=== PATIENT | female | born 1940 | race African-American/Black ===

== ENCOUNTER 2018-02-03 14:49 | Emergency (ER) | payer MEDICARE ==
[~2018-02-03] VITALS: Ht 167.6 cm; Wt 80.0 kg
[2018-02-03] MEDS ORDERED: SODIUM CHLORIDE 0.9% 500 ML IV ONE (15:21)
[2018-02-03 15:47] LABS: CLARITY URINE CLOUDY (CLEAR); COLOR URINE YELLOW (YELLOW); KETONES URINE NEGATIVE (NEGATIVE); LEUKOCYTE ESTERASE URINE 1+ (NEGATIVE); NITRITE URINE NEGATIVE (NEGATIVE); OCCULT BLOOD URINE TRACE (NEGATIVE); PROTEIN URINE TRACE (NEGATIVE); SPECIFIC GRAVITY URINE 1.019 (1.005-1.030)
[2018-02-03] MEDS ORDERED: LEVOFLOXACIN 750MG PREMIX 150 ML IV ONE (16:30)
[2018-02-03 16:46] LABS: HEMATOCRIT. 35.6 % (36.0-48.0); HEMOGLOBIN. 11.7 g/dL (12.0-16.0); MEAN CORPUSCULAR VOLUME 85.5 fL (81.0-99.0); MEAN PLATELET VOLUME 9.3 fl (7.4-10.4); PLATELET 257 x1000/uL (130-400); RED BLOOD CELL COUNT 4.16 mill/uL (4.2-5.4)
[2018-02-03 16:53] LABS: CHLORIDE 106 mEq/L (98-107)
[2018-02-03 17:09] LABS: PLATELET ESTIMATE NORMAL
[2018-02-03 19:06] VITALS: BP 141/75
== END 2018-02-03 19:21 | disposition home or self-care (01) ==
LOC: ER 16:16
DX: N39.0 Urinary tract infection, site not specified (principal); E11.65 Type 2 diabetes mellitus with hyperglycemia; I48.91 Unspecified atrial fibrillation; E87.6 Hypokalemia; R00.0 Tachycardia, unspecified; I10 Essential (primary) hypertension; Z88.0 Allergy status to penicillin; Z79.01 Long term (current) use of anticoagulants
CPT/HCPCS: 36415; 71045; 80053; 81003; 85025; 93005; 96365; 96366; 99284; J1956; J7030

== ENCOUNTER 2018-02-12 09:50 | Inpatient (IN) | payer MEDICARE ==
[~2018-02-12] VITALS: Ht 162.6 cm; Wt 76.2 kg
[2018-02-12] VITALS (7 sets, daily range): BP systolic 97–139; BP diastolic 65–132
[2018-02-12] MEDS ORDERED: SODIUM CHLORIDE 0.9% 1,000 ML IV ONE (10:28)
[2018-02-12 11:29] LABS: CHLORIDE 102 mEq/L (98-107)
[2018-02-12 11:30] LABS: BASOPHILS % 0.3 % (0.0-2.0); EOSINOPHILS % 0.2 % (0.0-5.0); HEMATOCRIT. 36.8 % (36.0-48.0); HEMOGLOBIN. 11.9 g/dL (12.0-16.0); LYMPHOCYTES % 12.4 % (20.0-50.0); MEAN CORPUSCULAR HEMOGLOBIN 27.3 pg (28.0-32.0); MEAN CORPUSCULAR VOLUME 84.4 fL (81.0-99.0); MEAN PLATELET VOLUME 10.2 fl (7.4-10.4); NEUTROPHILS % 78.1 % (40.0-76.0); PLATELET 207 x1000/uL (130-400); RED BLOOD CELL COUNT 4.36 mill/uL (4.2-5.4); RED CELL DISTRIBUTION WIDTH 15.2 % (11.6-14.6)
[2018-02-12 11:32] LABS: INR 1.5; PROTHROMBIN TIME 15.4 sec (9.1-11.1)
[2018-02-12] MEDS ORDERED: SODIUM CHLORIDE 0.9% 1000ML BAG (SEPSIS BOLUS) IV ONE (12:00)
[2018-02-12] MEDS ORDERED: LEVOFLOXACIN 750MG PREMIX 150 ML IV ONE (12:45)
[2018-02-12] MEDS ORDERED: DILTIAZEM HCL 60MG TABLET PO ONE (13:00)
[2018-02-12] MEDS ORDERED: DILTIAZEM HCL 5MG/ML 5ML VIAL IV ONE (13:00)
[2018-02-12 13:15] LABS: CLARITY URINE TURBID (CLEAR); COLOR URINE DARK YELLOW (YELLOW); KETONES URINE 1+ (NEGATIVE); LEUKOCYTE ESTERASE URINE TRACE (NEGATIVE); NITRITE URINE NEGATIVE (NEGATIVE); OCCULT BLOOD URINE 1+ (NEGATIVE); PH URINE 5.5 (4.5-8.0); PROTEIN URINE 2+ (NEGATIVE); SPECIFIC GRAVITY URINE 1.029 (1.005-1.030)
[2018-02-12] MEDS ORDERED: DILTIAZEM HCL 60MG TABLET PO NR (14:23)
[2018-02-12] MEDS: DILTIAZEM HCL 60MG TABLET PO SCH (17:04)
[2018-02-12] MEDS ORDERED: GUAIFENESIN 200MG/10ML SUGAR FREE UDC PO PRN (17:15)
[2018-02-12] MEDS ORDERED: DIPHENHYDRAMINE 50MG/ML VIAL IV PRN (17:15)
[2018-02-12] MEDS ORDERED: ONDANSETRON HCL 4MG/2ML INJ IV PRN (17:15)
[2018-02-12] MEDS ORDERED: ACETAMINOPHEN 650MG/20.3ML UDC GT PRN (17:15)
[2018-02-12] MEDS ORDERED: ACETAMINOPHEN 650MG SUPP PR PRN (17:15)
[2018-02-12] MEDS ORDERED: CLONIDINE 0.1MG TABLET PO PRN (17:15)
[2018-02-12] MEDS ORDERED: ACETAMINOPHEN 325MG TABLET PO PRN (17:15)
[2018-02-12] MEDS ORDERED: HYDROCODONE/ACETAMINOPHEN 5/325MG TABLET PO PRN (17:15)
[2018-02-12] MEDS ORDERED: MAGNESIUM/ALUMINUM HYDROXIDE/SIMETHICONE 30ML UDC PO PRN (17:15)
[2018-02-12] MEDS ORDERED: DEXTROSE 50% WATER 50ML SYRINGE IV PRN (17:30)
[2018-02-12] MEDS ORDERED: FUROSEMIDE 40MG/4ML VIAL IVP NR (17:58)
[2018-02-12] MEDS ORDERED: IBUP-2030 PO (19:20)
[2018-02-12] MEDS ORDERED: CLOP75TA33 PO (19:21)
[2018-02-12] MEDS ORDERED: METF-415 PO (19:23)
[2018-02-12] MEDS ORDERED: PRAV40TA58 PO (19:23)
[2018-02-12] MEDS ORDERED: DILT180T11 PO (19:23)
[2018-02-12] MEDS ORDERED: METO25TA6 PO (19:23)
[2018-02-12] MEDS ORDERED: LOSA25TA12 PO (19:27)
[2018-02-12] MEDS ORDERED: NITR-87 PO (19:27)
[2018-02-12] MEDS ORDERED: ENOXAPARIN 40MG/0.4ML SYR SUBCUT SCH (20:00)
[2018-02-12] MEDS: AZITHROMYCIN 500 MG in DEXT 5% WATER 250 ML IV SCH (20:38)
[2018-02-12] MEDS: IPRATROPIUM/ALBUTEROL 0.5-3(2.5)MG/3ML NEB INH SCH (20:49)
[2018-02-12] MEDS: BLOOD SUGAR DIAGNOSTIC STRIP TEST SCH (20:54)
[2018-02-12] MEDS ORDERED: NA PHOS,M-B/NA PHOS,DI-BA ENEMA 118ML PR PRN (21:00)
[2018-02-12] MEDS: INSULIN LISPRO 100 UNITS/ML SUBCUT SCH (21:07)
[2018-02-12] MEDS: SODIUM CHLORIDE 0.9% INJ 3ML FLUSH IVF SCH (21:08)
[2018-02-12 21:33] LABS: CLARITY URINE CLOUDY (CLEAR); COLOR URINE DARK YELLOW (YELLOW); KETONES URINE 1+ (NEGATIVE); LEUKOCYTE ESTERASE URINE 2+ (NEGATIVE); NITRITE URINE POSITIVE (NEGATIVE); OCCULT BLOOD URINE 2+ (NEGATIVE); PROTEIN URINE 2+ (NEGATIVE); SPECIFIC GRAVITY URINE 1.021 (1.005-1.030)
[2018-02-12 21:48] LABS: *AMPHETAMINES SCREEN URINE NEGATIVE (NEGATIVE); *BARBITURATES SCREEN URINE NEGATIVE (NEGATIVE); *BENZODIAZEPINES SCREEN URINE NEGATIVE (NEGATIVE); *COCAINE SCREEN URINE NEGATIVE (NEGATIVE); METHADONE URINE SCREEN NEGATIVE (NEGATIVE); OPIATES URINE SCREEN PRESUMTIVE POSITIVE (NEGATIVE)
[2018-02-12 21:49] LABS: CANNABINOID URINE SCREEN NEGATIVE (NEGATIVE); PHENCYCLIDINE URINE SCREEN NEGATIVE (NEGATIVE)
[2018-02-12 22:03] LABS: CREATINE KINASE MB FRACTION 4.2 ng/mL (0.5-3.6)
[2018-02-13] VITALS (46 sets, daily range): BP systolic 42–149; BP diastolic 17–107
[2018-02-13] MEDS: IPRATROPIUM/ALBUTEROL 0.5-3(2.5)MG/3ML NEB INH SCH ×2 (01:26→08:20)
[2018-02-13] MEDS ORDERED: HEPARIN BOLUS PRN aPTT 37-44 IV ×2 (03:30)
[2018-02-13] MEDS ORDERED: HEPARIN BOLUS PRN aPTT <36 IV ×2 (03:30)
[2018-02-13] MEDS ORDERED: IOHEXOL-350 100 ML BOTTLE ONE (03:33)
[2018-02-13] MEDS: HEPARIN 25,000 UNITS PREMIX 500 ML IV SCH (04:46)
[2018-02-13] MEDS: BLOOD SUGAR DIAGNOSTIC STRIP TEST SCH ×4 (05:54→21:18)
[2018-02-13] MEDS: DILTIAZEM HCL 60MG TABLET PO SCH ×5 (06:00→23:57)
[2018-02-13] MEDS: SODIUM CHLORIDE 0.9% INJ 3ML FLUSH IVF SCH ×3 (06:00→21:18)
[2018-02-13 07:32] LABS: HEMATOCRIT. 35.1 % (36.0-48.0); HEMOGLOBIN. 11.1 g/dL (12.0-16.0); MEAN CORPUSCULAR HEMOGLOBIN 26.9 pg (28.0-32.0); MEAN CORPUSCULAR VOLUME 85.2 fL (81.0-99.0); MEAN PLATELET VOLUME 10.3 fl (7.4-10.4); PLATELET 197 x1000/uL (130-400); RED BLOOD CELL COUNT 4.12 mill/uL (4.2-5.4); RED CELL DISTRIBUTION WIDTH 15.2 % (11.6-14.6)
[2018-02-13 07:33] LABS: CHLORIDE 100 mEq/L (98-107)
[2018-02-13 07:40] LABS: LDL CHOLESTEROL 74 mg/dL (5-100)
[2018-02-13 07:41] LABS: CREATINE KINASE 148 IU/L (26-192); CREATINE KINASE MB FRACTION 5.4 ng/mL (0.5-3.6); HDL CHOLESTEROL 22 mg/dL (40-59)
[2018-02-13] MEDS: ASPIRIN 81MG EC TABLET PO SCH (08:00)
[2018-02-13] MEDS: CLOPIDOGREL 75MG TABLET PO SCH (08:00)
[2018-02-13] MEDS: INSULIN LISPRO 100 UNITS/ML SUBCUT SCH ×4 (08:01→21:29)
[2018-02-13] MEDS ORDERED: ALPRAZOLAM 0.25 MG TABLET PO PRN (10:45)
[2018-02-13] MEDS ORDERED: IPRATROPIUM/ALBUTEROL 0.5-3(2.5)MG/3ML NEB HHN PRN (11:15)
[2018-02-13 12:04] LABS: PLATELET ESTIMATE NORMAL
[2018-02-13] MEDS: IPRATROPIUM BROMIDE (0.02%) 0.5MG/2.5ML NEB HHN SCH ×2 (13:00→20:24)
[2018-02-13] MEDS: LEVOFLOXACIN 500MG TABLET PO SCH (13:10)
[2018-02-13] MEDS: AZITHROMYCIN 500 MG in DEXT 5% WATER 250 ML IV SCH (18:22)
[2018-02-13 20:47] LABS: BG CARBOXYHEMOGLOBIN 0.6 % (0.5-1.5); BG DEOXYHEMOGLOBIN 0.8 % (0.0-5.0); BG FRACTION INSPIRED OXYGEN 60; BG METHEMOGLOBIN 0.3 % (0.0-1.5); BG OXYGEN SATURATION 99.2 % (92.0-98.5); BG OXYHEMOGLOBIN 98.3 % (94.0-97.0); BG PCO2 23.1 mmHg (35.0-45.0); BG SAMPLE SITE RIGHT RADIAL; BG TOTAL HEMOGLOBIN 11.8 g/dL (12.0-18.0)
[2018-02-13] MEDS ORDERED: LORAZEPAM 2MG/ML CPJ IV PRN (21:15)
[2018-02-14] VITALS (49 sets, daily range): BP systolic 92–140; BP diastolic 52–99
[2018-02-14] MEDS: ZOLPIDEM TARTRATE 5MG TABLET PO PRN ×2 (00:33→23:48)
[2018-02-14] MEDS: IPRATROPIUM BROMIDE (0.02%) 0.5MG/2.5ML NEB HHN SCH ×4 (02:04→20:34)
[2018-02-14] MEDS: HEPARIN 25,000 UNITS PREMIX 500 ML IV SCH (05:09)
[2018-02-14] MEDS: SODIUM CHLORIDE 0.9% INJ 3ML FLUSH IVF SCH ×3 (05:10→21:37)
[2018-02-14] MEDS: DILTIAZEM HCL 60MG TABLET PO SCH (05:33)
[2018-02-14 06:49] LABS: HEMATOCRIT. 34.1 % (36.0-48.0); HEMOGLOBIN. 11.2 g/dL (12.0-16.0); MEAN CORPUSCULAR HEMOGLOBIN 27.5 pg (28.0-32.0); MEAN CORPUSCULAR VOLUME 83.8 fL (81.0-99.0); MEAN PLATELET VOLUME 10.3 fl (7.4-10.4); PLATELET 197 x1000/uL (130-400); RED BLOOD CELL COUNT 4.07 mill/uL (4.2-5.4)
[2018-02-14 07:05] LABS: CHLORIDE 100 mEq/L (98-107)
[2018-02-14] MEDS: BLOOD SUGAR DIAGNOSTIC STRIP TEST SCH ×4 (08:06→21:37)
[2018-02-14] MEDS: CLOPIDOGREL 75MG TABLET PO SCH (08:23)
[2018-02-14] MEDS: ASPIRIN 81MG EC TABLET PO SCH (08:23)
[2018-02-14] MEDS: INSULIN LISPRO 100 UNITS/ML SUBCUT SCH ×4 (08:24→22:16)
[2018-02-14 08:53] LABS: BG BASE EXCESS -4.2 mmol/L (-2.0-2.0); BG CARBOXYHEMOGLOBIN 0.3 % (0.5-1.5); BG DEOXYHEMOGLOBIN 2.5 % (0.0-5.0); BG FRACTION INSPIRED OXYGEN 36; BG HCO3 ACT 17.9 mmol/L (22.0-26.0); BG METHEMOGLOBIN 0.3 % (0.0-1.5); BG OXYGEN SATURATION 97.5 % (92.0-98.5); BG OXYHEMOGLOBIN 96.9 % (94.0-97.0); BG PCO2 24.9 mmHg (35.0-45.0); BG PH 7.475 (7.350-7.450); BG PO2 97.1 mmHg (75.0-100.0); BG SAMPLE SITE RIGHT RADIAL; BG TOTAL HEMOGLOBIN 11.8 g/dL (12.0-18.0); BG VENT MODE NASAL CANNULA
[2018-02-14 08:54] LABS: NUCLEATED RED BLOOD CELLS 3 /100 WBC
[2018-02-14 08:55] LABS: PLATELET ESTIMATE NORMAL
[2018-02-14] MEDS ORDERED: DILTIAZEM HCL 5MG/ML 5ML VIAL IV PRN (11:00)
[2018-02-14] MEDS ORDERED: POTASSIUM CHLORIDE 20MEQ/PACKET PO NR (11:00)
[2018-02-14] MEDS: FUROSEMIDE 40MG/4ML VIAL IVP SCH (12:48)
[2018-02-14] MEDS: DILTIAZEM HCL 90MG TABLET PO SCH ×3 (12:48→23:45)
[2018-02-14] MEDS: LEVOFLOXACIN 500MG TABLET PO SCH (12:49)
[2018-02-14] MEDS: AZITHROMYCIN 500 MG in DEXT 5% WATER 250 ML IV SCH (17:57)
[2018-02-15] VITALS (43 sets, daily range): BP systolic 93–144; BP diastolic 16–101
[2018-02-15] MEDS: IPRATROPIUM BROMIDE (0.02%) 0.5MG/2.5ML NEB HHN SCH ×4 (02:22→20:58)
[2018-02-15] MEDS: SODIUM CHLORIDE 0.9% INJ 3ML FLUSH IVF SCH ×3 (06:07→20:55)
[2018-02-15] MEDS: DILTIAZEM HCL 90MG TABLET PO SCH ×4 (06:08→23:24)
[2018-02-15 07:03] LABS: HEMATOCRIT. 34.5 % (36.0-48.0); HEMOGLOBIN. 11.1 g/dL (12.0-16.0); LYMPHOCYTES % 7.6 % (20.0-50.0); MEAN CORPUSCULAR HEMOGLOBIN 27.2 pg (28.0-32.0); MEAN CORPUSCULAR VOLUME 84.2 fL (81.0-99.0); MEAN PLATELET VOLUME 10.1 fl (7.4-10.4); MONOCYTES % 10.2 % (2.0-8.0); NEUTROPHILS % 82.2 % (40.0-76.0); PLATELET 222 x1000/uL (130-400); RED CELL DISTRIBUTION WIDTH 14.8 % (11.6-14.6)
[2018-02-15 07:26] LABS: CHLORIDE 98 mEq/L (98-107)
[2018-02-15] MEDS: BLOOD SUGAR DIAGNOSTIC STRIP TEST SCH ×4 (07:41→20:55)
[2018-02-15] MEDS: POTASSIUM CHLORIDE 20MEQ TABLET SR PO SCH (08:31)
[2018-02-15] MEDS: ASPIRIN 81MG EC TABLET PO SCH (08:31)
[2018-02-15] MEDS: CLOPIDOGREL 75MG TABLET PO SCH (08:31)
[2018-02-15] MEDS: FUROSEMIDE 40MG/4ML VIAL IVP SCH (08:32)
[2018-02-15] MEDS: DOCUSATE SODIUM 100MG CAPSULE PO PRN (08:32)
[2018-02-15] MEDS: INSULIN LISPRO 100 UNITS/ML SUBCUT SCH ×4 (08:34→21:10)
[2018-02-15] MEDS: ENOXAPARIN 80MG/0.8ML SYR SUBCUT SCH ×2 (11:54→23:24)
[2018-02-15] MEDS: NITROFURANTOIN 100MG M/M CAPSULE PO SCH ×2 (11:55→21:06)
[2018-02-16] VITALS (36 sets, daily range): BP systolic 113–144; BP diastolic 16–99
[2018-02-16] MEDS: ZOLPIDEM TARTRATE 5MG TABLET PO PRN ×2 (01:07→23:53)
[2018-02-16] MEDS: IPRATROPIUM BROMIDE (0.02%) 0.5MG/2.5ML NEB HHN SCH ×5 (01:27→20:13)
[2018-02-16] MEDS: SODIUM CHLORIDE 0.9% INJ 3ML FLUSH IVF SCH ×3 (05:33→22:36)
[2018-02-16] MEDS: DILTIAZEM HCL 90MG TABLET PO SCH ×4 (05:33→23:53)
[2018-02-16 06:05] LABS: BASOPHILS % 0.2 % (0.0-2.0); EOSINOPHILS % 0.2 % (0.0-5.0); HEMATOCRIT. 34.1 % (36.0-48.0); HEMOGLOBIN. 11.2 g/dL (12.0-16.0); LYMPHOCYTES % 13.3 % (20.0-50.0); MEAN CORPUSCULAR HEMOGLOBIN 27.2 pg (28.0-32.0); MEAN CORPUSCULAR VOLUME 83.2 fL (81.0-99.0); MEAN PLATELET VOLUME 10.1 fl (7.4-10.4); MONOCYTES % 11.6 % (2.0-8.0); NEUTROPHILS % 74.7 % (40.0-76.0); PLATELET 224 x1000/uL (130-400); RED CELL DISTRIBUTION WIDTH 15.2 % (11.6-14.6)
[2018-02-16 06:26] LABS: CHLORIDE 100 mEq/L (98-107)
[2018-02-16] MEDS: BLOOD SUGAR DIAGNOSTIC STRIP TEST SCH ×4 (07:50→20:58)
[2018-02-16] MEDS: FUROSEMIDE 40MG/4ML VIAL IVP SCH (10:29)
[2018-02-16] MEDS: DOCUSATE SODIUM 100MG CAPSULE PO PRN (10:29)
[2018-02-16] MEDS: ASPIRIN 81MG EC TABLET PO SCH (10:29)
[2018-02-16] MEDS: NITROFURANTOIN 100MG M/M CAPSULE PO SCH ×2 (10:29→20:57)
[2018-02-16] MEDS: CLOPIDOGREL 75MG TABLET PO SCH (10:29)
[2018-02-16] MEDS: POTASSIUM CHLORIDE 20MEQ TABLET SR PO SCH (10:29)
[2018-02-16] MEDS: INSULIN LISPRO 100 UNITS/ML SUBCUT SCH ×4 (10:42→20:58)
[2018-02-16] MEDS: ENOXAPARIN 80MG/0.8ML SYR SUBCUT SCH (13:06)
[2018-02-17] VITALS: BP 124/76
[2018-02-17] MEDS: IPRATROPIUM BROMIDE (0.02%) 0.5MG/2.5ML NEB HHN SCH ×3 (02:10→13:44)
[2018-02-17 04:00] VITALS: BP 118/69
[2018-02-17] MEDS: INSULIN LISPRO 100 UNITS/ML SUBCUT SCH ×2 (06:27→13:11)
[2018-02-17] MEDS: BLOOD SUGAR DIAGNOSTIC STRIP TEST SCH (06:27)
[2018-02-17] MEDS: DILTIAZEM HCL 90MG TABLET PO SCH ×2 (06:43→12:25)
[2018-02-17] MEDS: SODIUM CHLORIDE 0.9% INJ 3ML FLUSH IVF SCH (06:44)
[2018-02-17 07:08] LABS: BASOPHILS % 0.1 % (0.0-2.0); EOSINOPHILS % 0.6 % (0.0-5.0); HEMATOCRIT. 36.2 % (36.0-48.0); HEMOGLOBIN. 11.8 g/dL (12.0-16.0); LYMPHOCYTES % 12.2 % (20.0-50.0); MEAN CORPUSCULAR HEMOGLOBIN 26.9 pg (28.0-32.0); MEAN CORPUSCULAR VOLUME 82.5 fL (81.0-99.0); MEAN PLATELET VOLUME 10.1 fl (7.4-10.4); MONOCYTES % 9.6 % (2.0-8.0); NEUTROPHILS % 77.5 % (40.0-76.0); PLATELET 263 x1000/uL (130-400); RED BLOOD CELL COUNT 4.39 mill/uL (4.2-5.4); RED CELL DISTRIBUTION WIDTH 15.1 % (11.6-14.6)
[2018-02-17 07:24] LABS: CHLORIDE 99 mEq/L (98-107)
[2018-02-17 08:00] VITALS: BP 117/69
[2018-02-17] MEDS ORDERED: RIVAROXABAN 15 MG TABLET PO SCH (09:00)
[2018-02-17] MEDS: CLOPIDOGREL 75MG TABLET PO SCH (09:57)
[2018-02-17] MEDS: POTASSIUM CHLORIDE 20MEQ TABLET SR PO SCH (09:57)
[2018-02-17] MEDS: NITROFURANTOIN 100MG M/M CAPSULE PO SCH (09:57)
[2018-02-17] MEDS: FUROSEMIDE 40MG/4ML VIAL IVP SCH (09:57)
[2018-02-17] MEDS: ASPIRIN 81MG EC TABLET PO SCH (09:58)
[2018-02-17] MEDS ORDERED: CARVEDILOL 3.125 MG TABLET PO SCH (11:45)
[2018-02-17 12:00] VITALS: BP 106/59
[2018-02-17 15:38] VITALS: BP 120/70
[2018-02-17 16:00] VITALS: BP 123/69
[2018-03-06] MEDS ORDERED: RIVAROXABAN 20 MG TABLET PO SCH (17:00)
== END 2018-02-17 16:33 | disposition home health service (06) | DRG 871 ==
LOC: ER 09:50 → 3WST 12:57 → EDBEDREQ 13:00 → EDBEDREQTM 13:00 → ENRESERV 13:17 → 3WST 17:06 → CVICU 02-13 08:49 → 8WST 02-16 23:43
PROVIDERS: ADMIT Family Medicine; ATTEND Family Medicine
PROC: 5A09357 Assistance with Respiratory Ventilation, Less than 24 Consecutive Hours, Continuous Positive Airway Pressure (ICD-10-PCS; 2018-02-14)
PROC: 5A09357 Assistance with Respiratory Ventilation, Less than 24 Consecutive Hours, Continuous Positive Airway Pressure (ICD-10-PCS; 2018-02-15)
PROC: 5A09357 Assistance with Respiratory Ventilation, Less than 24 Consecutive Hours, Continuous Positive Airway Pressure (ICD-10-PCS; principal; 2018-02-16)
DX: A41.9 Sepsis, unspecified organism (principal); J18.9 Pneumonia, unspecified organism; J96.00 Acute respiratory failure, unspecified whether with hypoxia or hypercapnia; I26.99 Other pulmonary embolism without acute cor pulmonale; I50.21 Acute systolic (congestive) heart failure; N39.0 Urinary tract infection, site not specified; I42.9 Cardiomyopathy, unspecified; I47.1 Supraventricular tachycardia; I48.1 Persistent atrial fibrillation; R74.0 Nonspecific elevation of levels of transaminase and lactic acid dehydrogenase [LDH]; E11.9 Type 2 diabetes mellitus without complications; E78.00 Pure hypercholesterolemia, unspecified; E78.5 Hyperlipidemia, unspecified; I08.1 Rheumatic disorders of both mitral and tricuspid valves; I11.0 Hypertensive heart disease with heart failure; I27.20 Pulmonary hypertension, unspecified; B96.20 Unspecified Escherichia coli [E. coli] as the cause of diseases classified elsewhere; B96.89 Other specified bacterial agents as the cause of diseases classified elsewhere; I48.2 Chronic atrial fibrillation; Z79.02 Long term (current) use of antithrombotics/antiplatelets; Z82.49 Family history of ischemic heart disease and other diseases of the circulatory system; Z85.41 Personal history of malignant neoplasm of cervix uteri; Z88.0 Allergy status to penicillin; Z90.710 Acquired absence of both cervix and uterus; Z79.899 Other long term (current) drug therapy
CPT/HCPCS: 36415; 36600; 71045; 71275; 80048; 80061; 80305; 82375; 82550; 82553; 82805; 82962; 83605; 83735; 83880; 84145; 84443; 84484; 85379; 87077; 87186; 93005; 93306; 93970; 94640; 94660; 96365; 96375; 97116; 97162; 97530; 99291; J0456; J1644; J1650; J1815; J1940; J1956; J3490; J7030; J7050; J7060; J7620; Q9967

== ENCOUNTER 2018-02-17 16:30 | Inpatient (IN) | payer MEDICARE, BC ==
[~2018-02-17] VITALS: Ht 162.6 cm; Wt 80.3 kg
[~2018-02-17 16:30] MED LIST: CLOP75TA33 PO; DILT180T11 PO; IBUP-2030 PO; LOSA25TA12 PO; METF-415 PO; METO25TA6 PO; NITR-87 PO; PRAV40TA58 PO
[2018-02-17 16:50] VITALS: BP 111/56
[2018-02-17] MEDS: IPRATROPIUM BROMIDE (0.02%) 0.5MG/2.5ML NEB HHN SCH (18:05)
[2018-02-17 18:10] VITALS: BP 111/56
[2018-02-17] MEDS ORDERED: METFORMIN HCL 850MG TABLET PO SCH (18:15)
[2018-02-17 20:00] VITALS: BP 105/71
[2018-02-17] MEDS ORDERED: BISACODYL 5MG TABLET PO PRN (20:00)
[2018-02-17] MEDS: CARVEDILOL 3.125 MG TABLET PO SCH (21:00)
[2018-02-17] MEDS ORDERED: METOPROLOL TARTRATE 25MG TABLET PO SCH (21:00)
[2018-02-17] MEDS: NITROFURANTOIN 100MG M/M CAPSULE PO SCH (21:03)
[2018-02-17] MEDS: RIVAROXABAN 15 MG TABLET PO SCH (21:03)
[2018-02-17] MEDS: ATORVASTATIN CALCIUM 40MG TABLET PO SCH (21:03)
[2018-02-17] MEDS: DOCUSATE SODIUM 100MG CAPSULE PO SCH (21:05)
[2018-02-17] MEDS ORDERED: DEXTROSE 50% WATER 50ML SYRINGE IV PRN (22:30)
[2018-02-17] MEDS: INSULIN LISPRO 100 UNITS/ML SUBCUT SCH (23:05)
[2018-02-18] MEDS: IPRATROPIUM BROMIDE (0.02%) 0.5MG/2.5ML NEB HHN SCH ×5 (01:06→21:21)
[2018-02-18] MEDS: BLOOD SUGAR DIAGNOSTIC STRIP TEST SCH ×4 (07:14→20:41)
[2018-02-18] MEDS: INSULIN LISPRO 100 UNITS/ML SUBCUT SCH ×4 (07:15→21:14)
[2018-02-18 07:32] LABS: HEMATOCRIT. 34.3 % (36.0-48.0); HEMOGLOBIN. 11.2 g/dL (12.0-16.0); MEAN CORPUSCULAR HEMOGLOBIN 26.8 pg (28.0-32.0); MEAN CORPUSCULAR VOLUME 82.5 fL (81.0-99.0); MEAN PLATELET VOLUME 10.5 fl (7.4-10.4); PLATELET 250 x1000/uL (130-400); RED BLOOD CELL COUNT 4.16 mill/uL (4.2-5.4); RED CELL DISTRIBUTION WIDTH 15.4 % (11.6-14.6)
[2018-02-18 07:40] LABS: CHLORIDE 98 mEq/L (98-107)
[2018-02-18 08:00] VITALS: BP 112/73
[2018-02-18] MEDS: CARVEDILOL 3.125 MG TABLET PO SCH ×2 (08:41→20:40)
[2018-02-18] MEDS: DOCUSATE SODIUM 100MG CAPSULE PO SCH ×2 (08:41→17:23)
[2018-02-18] MEDS: CLOPIDOGREL 75MG TABLET PO SCH (08:42)
[2018-02-18] MEDS: DILTIAZEM HCL 180MG CAPSULE CD 24HR PO SCH (08:42)
[2018-02-18] MEDS: RIVAROXABAN 15 MG TABLET PO SCH ×3 (08:42→20:40)
[2018-02-18] MEDS: FUROSEMIDE 40MG TABLET PO SCH (08:42)
[2018-02-18] MEDS: NITROFURANTOIN 100MG M/M CAPSULE PO SCH ×2 (08:42→20:41)
[2018-02-18] MEDS ORDERED: LOSARTAN POTASSIUM 25 MG TABLET PO SCH (09:00)
[2018-02-18] MEDS ORDERED: CLOPIDOGREL 75MG TABLET PO SCH (09:00)
[2018-02-18] MEDS ORDERED: INSULIN LISPRO 100 UNITS/ML SUBCUT SCH (09:00)
[2018-02-18] MEDS ORDERED: SODIUM POLYSTYRENE SULFONATE 15 G/60 ML BOT PO SCH (10:00)
[2018-02-18] MEDS: LEVOFLOXACIN 250MG TABLET PO SCH (10:09)
[2018-02-18] MEDS ORDERED: LEVOFLOXACIN 500MG TABLET PO SCH (11:00)
[2018-02-18 13:40] LABS: NUCLEATED RED BLOOD CELLS 3 /100 WBC; PLATELET ESTIMATE NORMAL
[2018-02-18 20:00] VITALS: BP 135/88
[2018-02-18 20:38] LABS: CLARITY URINE CLEAR (CLEAR); COLOR URINE DARK YELLOW (YELLOW); KETONES URINE NEGATIVE (NEGATIVE); LEUKOCYTE ESTERASE URINE NEGATIVE (NEGATIVE); NITRITE URINE NEGATIVE (NEGATIVE); OCCULT BLOOD URINE NEGATIVE (NEGATIVE); PH URINE 5.5 (4.5-8.0); PROTEIN URINE NEGATIVE (NEGATIVE); SPECIFIC GRAVITY URINE 1.022 (1.005-1.030)
[2018-02-18] MEDS: FAMOTIDINE 20MG TABLET PO SCH (20:41)
[2018-02-18] MEDS: ATORVASTATIN CALCIUM 40MG TABLET PO SCH (20:41)
[2018-02-18] MEDS: ALBUTEROL (0.083%) 2.5MG/3ML NEB HHN SCH (21:21)
[2018-02-18] MEDS ORDERED: METOCLOPRAMIDE HCL 5MG TABLET PO PRN (22:15)
[2018-02-18] MEDS ORDERED: BISACODYL 10MG SUPP PR PRN (22:15)
[2018-02-18] MEDS ORDERED: MAGNESIUM/ALUMINUM HYDROXIDE/SIMETHICONE 30ML UDC PO PRN (22:15)
[2018-02-18] MEDS ORDERED: DOCUSATE SODIUM 250MG CAPSULE PO PRN (22:15)
[2018-02-19] MEDS ORDERED: FUROSEMIDE 40MG/4ML VIAL IVP SCH (02:17)
[2018-02-19] MEDS: IPRATROPIUM BROMIDE (0.02%) 0.5MG/2.5ML NEB HHN SCH ×3 (02:20→20:59)
[2018-02-19] MEDS: ALBUTEROL (0.083%) 2.5MG/3ML NEB HHN SCH ×4 (02:20→20:59)
[2018-02-19] MEDS: BLOOD SUGAR DIAGNOSTIC STRIP TEST SCH ×4 (06:13→21:39)
[2018-02-19] MEDS: INSULIN LISPRO 100 UNITS/ML SUBCUT SCH ×4 (06:27→21:00)
[2018-02-19 08:00] VITALS: BP 120/70
[2018-02-19] MEDS: DOCUSATE SODIUM 100MG CAPSULE PO SCH ×2 (09:25→17:44)
[2018-02-19] MEDS: FUROSEMIDE 40MG TABLET PO SCH (09:25)
[2018-02-19] MEDS: FAMOTIDINE 20MG TABLET PO SCH ×2 (09:25→21:35)
[2018-02-19] MEDS: NITROFURANTOIN 100MG M/M CAPSULE PO SCH ×2 (09:25→21:35)
[2018-02-19] MEDS: CLOPIDOGREL 75MG TABLET PO SCH (09:25)
[2018-02-19] MEDS: CARVEDILOL 3.125 MG TABLET PO SCH ×2 (09:25→21:35)
[2018-02-19] MEDS: DILTIAZEM HCL 180MG CAPSULE CD 24HR PO SCH (09:25)
[2018-02-19] MEDS: RIVAROXABAN 15 MG TABLET PO SCH (17:44)
[2018-02-19 20:00] VITALS: BP 123/72
[2018-02-19] MEDS: ATORVASTATIN CALCIUM 40MG TABLET PO SCH (21:35)
[2018-02-20] MEDS: BLOOD SUGAR DIAGNOSTIC STRIP TEST SCH ×4 (06:26→21:00)
[2018-02-20] MEDS: INSULIN LISPRO 100 UNITS/ML SUBCUT SCH ×4 (07:02→22:30)
[2018-02-20] MEDS: ALBUTEROL (0.083%) 2.5MG/3ML NEB HHN SCH ×3 (07:19→20:37)
[2018-02-20] MEDS: IPRATROPIUM BROMIDE (0.02%) 0.5MG/2.5ML NEB HHN SCH ×3 (07:20→20:38)
[2018-02-20 08:00] VITALS: BP 118/72
[2018-02-20 08:04] LABS: BASOPHILS % 0.1 % (0.0-2.0); EOSINOPHILS % 1.3 % (0.0-5.0); HEMATOCRIT. 36.5 % (36.0-48.0); HEMOGLOBIN. 11.7 g/dL (12.0-16.0); LYMPHOCYTES % 8.2 % (20.0-50.0); MEAN CORPUSCULAR HEMOGLOBIN 26.4 pg (28.0-32.0); MEAN CORPUSCULAR VOLUME 82.7 fL (81.0-99.0); MEAN PLATELET VOLUME 9.9 fl (7.4-10.4); MONOCYTES % 8.6 % (2.0-8.0); NEUTROPHILS % 81.8 % (40.0-76.0); PLATELET 265 x1000/uL (130-400); RED BLOOD CELL COUNT 4.42 mill/uL (4.2-5.4); RED CELL DISTRIBUTION WIDTH 15.1 % (11.6-14.6)
[2018-02-20 08:05] LABS: CHLORIDE 95 mEq/L (98-107)
[2018-02-20] MEDS: DOCUSATE SODIUM 100MG CAPSULE PO SCH ×2 (09:17→17:05)
[2018-02-20] MEDS: RIVAROXABAN 15 MG TABLET PO SCH ×2 (09:17→17:05)
[2018-02-20] MEDS: FAMOTIDINE 20MG TABLET PO SCH (09:17)
[2018-02-20] MEDS: NITROFURANTOIN 100MG M/M CAPSULE PO SCH ×2 (09:17→22:29)
[2018-02-20] MEDS: CLOPIDOGREL 75MG TABLET PO SCH (09:18)
[2018-02-20] MEDS: FUROSEMIDE 40MG TABLET PO SCH (09:18)
[2018-02-20] MEDS: DILTIAZEM HCL 180MG CAPSULE CD 24HR PO SCH (09:19)
[2018-02-20] MEDS: CARVEDILOL 3.125 MG TABLET PO SCH ×2 (09:19→21:00)
[2018-02-20] MEDS ORDERED: POTASSIUM CHLORIDE 20MEQ TABLET SR PO PRN (10:00)
[2018-02-20] MEDS: LEVOFLOXACIN 250MG TABLET PO SCH (11:56)
[2018-02-20] MEDS: PANTOPRAZOLE 40MG DR TABLET PO SCH (15:17)
[2018-02-20] MEDS: BISACODYL 5MG TABLET PO PRN (15:19)
[2018-02-20 20:00] VITALS: BP 96/64
[2018-02-20] MEDS ORDERED: ALBUTEROL (0.5%) 2.5MG/0.5ML NEB HHN PRN (20:00)
[2018-02-20] MEDS: ATORVASTATIN CALCIUM 40MG TABLET PO SCH (22:29)
[2018-02-21] MEDS: IPRATROPIUM BROMIDE (0.02%) 0.5MG/2.5ML NEB HHN SCH ×4 (01:54→21:24)
[2018-02-21] MEDS: ALBUTEROL (0.083%) 2.5MG/3ML NEB HHN SCH ×4 (01:54→21:24)
[2018-02-21] MEDS: BLOOD SUGAR DIAGNOSTIC STRIP TEST SCH ×4 (05:58→21:00)
[2018-02-21] MEDS: PANTOPRAZOLE 40MG DR TABLET PO SCH (05:59)
[2018-02-21 06:30] VITALS: BP 108/66
[2018-02-21] MEDS: INSULIN LISPRO 100 UNITS/ML SUBCUT SCH ×3 (08:08→17:00)
[2018-02-21 08:19] VITALS: BP 112/74
[2018-02-21] MEDS: CARVEDILOL 3.125 MG TABLET PO SCH ×2 (09:00→21:00)
[2018-02-21] MEDS: NITROFURANTOIN 100MG M/M CAPSULE PO SCH ×2 (09:00→23:59)
[2018-02-21] MEDS: DILTIAZEM HCL 180MG CAPSULE CD 24HR PO SCH (09:00)
[2018-02-21] MEDS: FUROSEMIDE 40MG TABLET PO SCH (09:00)
[2018-02-21] MEDS: CLOPIDOGREL 75MG TABLET PO SCH (09:00)
[2018-02-21] MEDS: RIVAROXABAN 15 MG TABLET PO SCH (09:00)
[2018-02-21] MEDS: DOCUSATE SODIUM 100MG CAPSULE PO SCH ×2 (09:00→16:50)
[2018-02-21] MEDS ORDERED: MIDAZOLAM HCL 5 MG/5 ML VIAL ONE (13:30)
[2018-02-21] MEDS ORDERED: FENTANYL CITRATE/PF 50MCG/ML 2ML VIAL ONE (13:30)
[2018-02-21] MEDS ORDERED: SIMETHICONE 40 MG/0.6 ML 30ML ONE (13:31)
[2018-02-21] MEDS ORDERED: FENTANYL CITRATE/PF 50MCG/ML 2ML VIAL IV PRN (13:32)
[2018-02-21] MEDS ORDERED: MIDAZOLAM HCL 2 MG/2 ML VIAL IV PRN (13:33)
[2018-02-21] MEDS ORDERED: OMEPRAZOLE 20MG CAPSULE EXTENDED RELEASE PO SCH (14:00)
[2018-02-21 14:36] LABS: HEMATOCRIT 34.6 % (36.0-48.0); MEAN CORPUSCULAR HEMOGLOBIN 26.4 pg (28.0-32.0); MEAN CORPUSCULAR VOLUME 82.9 fL (81.0-99.0); PLATELET 235 x1000/uL (130-400); RED BLOOD CELL COUNT 4.17 mill/uL (4.2-5.4); RED CELL DISTRIBUTION WIDTH 15.3 % (11.6-14.6)
[2018-02-21] MEDS ORDERED: SODIUM CHLORIDE 0.9% 10ML VIAL ONE ×2 (14:57→14:58)
[2018-02-21] MEDS ORDERED: KCL 20MEQ/100ML PREMIX 100 ML IV SCH (16:00)
[2018-02-21] MEDS ORDERED: OMEPRAZOLE 20MG CAPSULE EXTENDED RELEASE PO NR (16:00)
[2018-02-21] MEDS: SUCRALFATE 1 G/10 ML UDC PO SCH (16:50)
[2018-02-21] MEDS: BISACODYL 5MG TABLET PO PRN (19:13)
[2018-02-21 20:00] VITALS: BP 113/62
[2018-02-21] MEDS: ATORVASTATIN CALCIUM 40MG TABLET PO SCH (23:59)
[2018-02-21] MEDS: OMEPRAZOLE 20MG CAPSULE EXTENDED RELEASE PO SCH (23:59)
[2018-02-22] MEDS: INSULIN LISPRO 100 UNITS/ML SUBCUT SCH ×5 (00:01→22:06)
[2018-02-22] MEDS: ALBUTEROL (0.083%) 2.5MG/3ML NEB HHN SCH ×4 (01:16→21:23)
[2018-02-22] MEDS: IPRATROPIUM BROMIDE (0.02%) 0.5MG/2.5ML NEB HHN SCH ×4 (01:16→21:23)
[2018-02-22 06:32] LABS: BASOPHILS % 0.3 % (0.0-2.0); HEMATOCRIT. 32.1 % (36.0-48.0); HEMOGLOBIN. 10.6 g/dL (12.0-16.0); MEAN CORPUSCULAR HEMOGLOBIN 27.1 pg (28.0-32.0); MEAN CORPUSCULAR VOLUME 82.4 fL (81.0-99.0); MEAN PLATELET VOLUME 9.4 fl (7.4-10.4); MONOCYTES % 8.8 % (2.0-8.0); NEUTROPHILS % 77.9 % (40.0-76.0); PLATELET 243 x1000/uL (130-400); RED CELL DISTRIBUTION WIDTH 15.1 % (11.6-14.6)
[2018-02-22] MEDS: BLOOD SUGAR DIAGNOSTIC STRIP TEST SCH ×4 (06:50→21:19)
[2018-02-22] MEDS: SUCRALFATE 1 G/10 ML UDC PO SCH ×5 (06:58→21:51)
[2018-02-22 07:33] LABS: CHLORIDE 98 mEq/L (98-107)
[2018-02-22 08:00] VITALS: BP 118/78
[2018-02-22] MEDS ORDERED: FAMOTIDINE 20MG TABLET PO SCH (09:00)
[2018-02-22] MEDS ORDERED: POTASSIUM CHLORIDE INJ 40 MEQ in DEXT 5% WATER 500 ML IV SCH (09:00)
[2018-02-22] MEDS: OMEPRAZOLE 20MG CAPSULE EXTENDED RELEASE PO SCH ×2 (09:05→21:20)
[2018-02-22] MEDS: DILTIAZEM HCL 180MG CAPSULE CD 24HR PO SCH (09:05)
[2018-02-22] MEDS: FUROSEMIDE 40MG TABLET PO SCH (09:05)
[2018-02-22] MEDS: NITROFURANTOIN 100MG M/M CAPSULE PO SCH ×2 (09:06→21:19)
[2018-02-22] MEDS: CARVEDILOL 3.125 MG TABLET PO SCH ×2 (09:06→21:00)
[2018-02-22] MEDS: DOCUSATE SODIUM 100MG CAPSULE PO SCH ×2 (09:06→16:05)
[2018-02-22] MEDS: LEVOFLOXACIN 250MG TABLET PO SCH (11:02)
[2018-02-22 16:53] LABS: BASOPHILS % 0.1 % (0.0-2.0); EOSINOPHILS % 1.3 % (0.0-5.0); HEMATOCRIT. 34.1 % (36.0-48.0); HEMOGLOBIN. 10.9 g/dL (12.0-16.0); LYMPHOCYTES % 8.9 % (20.0-50.0); MEAN CORPUSCULAR HEMOGLOBIN 26.6 pg (28.0-32.0); MEAN CORPUSCULAR VOLUME 82.9 fL (81.0-99.0); MEAN PLATELET VOLUME 9.4 fl (7.4-10.4); MONOCYTES % 9.2 % (2.0-8.0); NEUTROPHILS % 80.5 % (40.0-76.0); PLATELET 220 x1000/uL (130-400); RED BLOOD CELL COUNT 4.12 mill/uL (4.2-5.4); RED CELL DISTRIBUTION WIDTH 15.6 % (11.6-14.6)
[2018-02-22 16:54] LABS: CHLORIDE 98 mEq/L (98-107)
[2018-02-22 17:01] LABS: TOTAL IRON BINDING CAPACITY 353 ug/dL (250-450)
[2018-02-22 17:18] LABS: FERRITIN 105 ng/mL (10-291)
[2018-02-22 17:25] LABS: VITAMIN B12 SERUM >2000 pg/mL pg/mL (211-911)
[2018-02-22] MEDS ORDERED: RIVAROXABAN 15 MG TABLET PO NR (18:30)
[2018-02-22 20:00] VITALS: BP 95/67
[2018-02-22] MEDS: ATORVASTATIN CALCIUM 40MG TABLET PO SCH (21:19)
[2018-02-23] MEDS: ALBUTEROL (0.083%) 2.5MG/3ML NEB HHN SCH ×2 (02:05→20:48)
[2018-02-23] MEDS: SUCRALFATE 1 G/10 ML UDC PO SCH ×4 (06:12→20:30)
[2018-02-23] MEDS: BLOOD SUGAR DIAGNOSTIC STRIP TEST SCH ×4 (06:12→20:34)
[2018-02-23] MEDS: DOCUSATE SODIUM 100MG CAPSULE PO SCH ×2 (07:53→16:40)
[2018-02-23] MEDS: OMEPRAZOLE 20MG CAPSULE EXTENDED RELEASE PO SCH ×2 (07:53→20:30)
[2018-02-23] MEDS: CARVEDILOL 3.125 MG TABLET PO SCH ×2 (07:54→07:59)
[2018-02-23] MEDS: FUROSEMIDE 40MG TABLET PO SCH (07:54)
[2018-02-23] MEDS: RIVAROXABAN 15 MG TABLET PO SCH ×2 (07:54→16:40)
[2018-02-23] MEDS: DILTIAZEM HCL 180MG CAPSULE CD 24HR PO SCH (07:55)
[2018-02-23 08:44] VITALS: BP 113/58
[2018-02-23] MEDS: IPRATROPIUM BROMIDE (0.02%) 0.5MG/2.5ML NEB HHN SCH ×3 (09:51→20:48)
[2018-02-23] MEDS: INSULIN LISPRO 100 UNITS/ML SUBCUT SCH ×3 (12:39→20:35)
[2018-02-23 16:25] LABS: BASOPHILS % 0.3 % (0.0-2.0); EOSINOPHILS % 1.1 % (0.0-5.0); HEMATOCRIT. 34.9 % (36.0-48.0); HEMOGLOBIN. 11.1 g/dL (12.0-16.0); LYMPHOCYTES % 8.8 % (20.0-50.0); MEAN CORPUSCULAR HEMOGLOBIN 26.1 pg (28.0-32.0); MEAN CORPUSCULAR VOLUME 82.3 fL (81.0-99.0); MEAN PLATELET VOLUME 9.6 fl (7.4-10.4); MONOCYTES % 6.7 % (2.0-8.0); NEUTROPHILS % 83.1 % (40.0-76.0); PLATELET 219 x1000/uL (130-400); RED BLOOD CELL COUNT 4.25 mill/uL (4.2-5.4); RED CELL DISTRIBUTION WIDTH 15.7 % (11.6-14.6)
[2018-02-23 20:00] VITALS: BP 102/57
[2018-02-23] MEDS: ATORVASTATIN CALCIUM 40MG TABLET PO SCH (20:30)
[2018-02-24] MEDS: ALBUTEROL (0.083%) 2.5MG/3ML NEB HHN SCH ×3 (01:22→13:12)
[2018-02-24] MEDS: IPRATROPIUM BROMIDE (0.02%) 0.5MG/2.5ML NEB HHN SCH ×2 (01:23→21:24)
[2018-02-24] MEDS: BLOOD SUGAR DIAGNOSTIC STRIP TEST SCH ×4 (06:23→21:07)
[2018-02-24] MEDS: SUCRALFATE 1 G/10 ML UDC PO SCH ×4 (06:23→21:00)
[2018-02-24] MEDS: INSULIN LISPRO 100 UNITS/ML SUBCUT SCH ×4 (06:37→21:31)
[2018-02-24 06:55] LABS: BASOPHILS % 0.2 % (0.0-2.0); EOSINOPHILS % 1.4 % (0.0-5.0); HEMOGLOBIN. 10.6 g/dL (12.0-16.0); LYMPHOCYTES % 12.5 % (20.0-50.0); MEAN CORPUSCULAR HEMOGLOBIN 26.4 pg (28.0-32.0); MEAN CORPUSCULAR VOLUME 82.4 fL (81.0-99.0); MEAN PLATELET VOLUME 9.4 fl (7.4-10.4); MONOCYTES % 6.4 % (2.0-8.0); NEUTROPHILS % 79.5 % (40.0-76.0); PLATELET 208 x1000/uL (130-400); RED CELL DISTRIBUTION WIDTH 15.3 % (11.6-14.6)
[2018-02-24] MEDS ORDERED: IPRATROPIUM/ALBUTEROL 0.5-3(2.5)MG/3ML NEB ONE (07:43)
[2018-02-24 08:00] VITALS: BP 116/71
[2018-02-24] MEDS: DOCUSATE SODIUM 100MG CAPSULE PO SCH ×2 (09:00→17:56)
[2018-02-24] MEDS: RIVAROXABAN 15 MG TABLET PO SCH ×2 (09:11→17:56)
[2018-02-24] MEDS: OMEPRAZOLE 20MG CAPSULE EXTENDED RELEASE PO SCH ×2 (09:12→21:00)
[2018-02-24] MEDS: CLOPIDOGREL 75MG TABLET PO SCH (09:12)
[2018-02-24] MEDS: CARVEDILOL 3.125 MG TABLET PO SCH ×2 (09:12→21:00)
[2018-02-24] MEDS: FUROSEMIDE 40MG TABLET PO SCH (09:13)
[2018-02-24] MEDS: DILTIAZEM HCL 180MG CAPSULE CD 24HR PO SCH (09:13)
[2018-02-24] MEDS: LEVOFLOXACIN 250MG TABLET PO SCH (12:56)
[2018-02-24 20:00] VITALS: BP 126/72
[2018-02-24] MEDS: ATORVASTATIN CALCIUM 40MG TABLET PO SCH (21:00)
[2018-02-25] MEDS: SUCRALFATE 1 G/10 ML UDC PO SCH ×4 (05:35→20:20)
[2018-02-25] MEDS: BLOOD SUGAR DIAGNOSTIC STRIP TEST SCH ×4 (06:18→20:25)
[2018-02-25] MEDS: INSULIN LISPRO 100 UNITS/ML SUBCUT SCH ×4 (06:44→20:28)
[2018-02-25] MEDS ORDERED: IPRATROPIUM/ALBUTEROL 0.5-3(2.5)MG/3ML NEB ONE (07:44)
[2018-02-25 08:00] VITALS: BP 134/79
[2018-02-25] MEDS: OMEPRAZOLE 20MG CAPSULE EXTENDED RELEASE PO SCH ×2 (08:00→20:20)
[2018-02-25] MEDS: CARVEDILOL 3.125 MG TABLET PO SCH ×2 (09:00→20:20)
[2018-02-25] MEDS: RIVAROXABAN 15 MG TABLET PO SCH ×2 (09:00→16:42)
[2018-02-25] MEDS: CLOPIDOGREL 75MG TABLET PO SCH (09:00)
[2018-02-25] MEDS: DILTIAZEM HCL 180MG CAPSULE CD 24HR PO SCH (09:00)
[2018-02-25] MEDS: FUROSEMIDE 40MG TABLET PO SCH (09:00)
[2018-02-25] MEDS: DOCUSATE SODIUM 100MG CAPSULE PO SCH ×2 (09:00→17:07)
[2018-02-25] MEDS: ALBUTEROL (0.083%) 2.5MG/3ML NEB HHN SCH (19:49)
[2018-02-25 20:00] VITALS: BP 124/86
[2018-02-25] MEDS: ATORVASTATIN CALCIUM 40MG TABLET PO SCH (20:20)
[2018-02-26] MEDS: ALBUTEROL (0.083%) 2.5MG/3ML NEB HHN SCH ×5 (01:41→20:58)
[2018-02-26] MEDS: SUCRALFATE 1 G/10 ML UDC PO SCH ×4 (05:50→20:58)
[2018-02-26] MEDS: BLOOD SUGAR DIAGNOSTIC STRIP TEST SCH ×4 (05:51→20:59)
[2018-02-26 07:42] LABS: BASOPHILS % 0.5 % (0.0-2.0); CHLORIDE 99 mEq/L (98-107); EOSINOPHILS % 0.8 % (0.0-5.0); HEMATOCRIT. 34.3 % (36.0-48.0); HEMOGLOBIN. 11.2 g/dL (12.0-16.0); LYMPHOCYTES % 8.9 % (20.0-50.0); MEAN CORPUSCULAR HEMOGLOBIN 26.7 pg (28.0-32.0); MEAN PLATELET VOLUME 9.8 fl (7.4-10.4); MONOCYTES % 6.9 % (2.0-8.0); NEUTROPHILS % 82.9 % (40.0-76.0); PLATELET 186 x1000/uL (130-400); RED BLOOD CELL COUNT 4.18 mill/uL (4.2-5.4); RED CELL DISTRIBUTION WIDTH 15.5 % (11.6-14.6)
[2018-02-26] MEDS: OMEPRAZOLE 20MG CAPSULE EXTENDED RELEASE PO SCH ×2 (07:58→20:58)
[2018-02-26] MEDS: INSULIN LISPRO 100 UNITS/ML SUBCUT SCH ×4 (08:13→21:05)
[2018-02-26 08:19] VITALS: BP 140/85
[2018-02-26] MEDS: CLOPIDOGREL 75MG TABLET PO SCH (08:26)
[2018-02-26] MEDS: FUROSEMIDE 40MG TABLET PO SCH (08:27)
[2018-02-26] MEDS: CARVEDILOL 3.125 MG TABLET PO SCH ×2 (08:27→20:59)
[2018-02-26] MEDS: RIVAROXABAN 15 MG TABLET PO SCH ×2 (08:27→17:37)
[2018-02-26] MEDS: DILTIAZEM HCL 180MG CAPSULE CD 24HR PO SCH (08:29)
[2018-02-26] MEDS: DOCUSATE SODIUM 100MG CAPSULE PO SCH ×2 (08:30→17:37)
[2018-02-26 08:35] VITALS: BP 127/80
[2018-02-26] MEDS ORDERED: POTASSIUM CHLORIDE 20MEQ TABLET SR PO PRN (09:00)
[2018-02-26] MEDS ORDERED: FUROSEMIDE 40MG/4ML VIAL IVP SCH (12:00)
[2018-02-26] MEDS ORDERED: POTASSIUM CHLORIDE 20MEQ/PACKET PO NR (13:15)
[2018-02-26 20:13] VITALS: BP 118/76
[2018-02-26] MEDS ORDERED: DIPHENHYDRAMINE 25MG CAPSULE PO PRN (20:15)
[2018-02-26] MEDS: ATORVASTATIN CALCIUM 40MG TABLET PO SCH (20:59)
[2018-02-27] MEDS: IPRATROPIUM BROMIDE (0.02%) 0.5MG/2.5ML NEB HHN SCH ×4 (01:55→21:26)
[2018-02-27] MEDS: ALBUTEROL (0.083%) 2.5MG/3ML NEB HHN SCH ×2 (02:19→21:27)
[2018-02-27] MEDS: BLOOD SUGAR DIAGNOSTIC STRIP TEST SCH ×4 (05:49→21:51)
[2018-02-27] MEDS: SUCRALFATE 1 G/10 ML UDC PO SCH ×4 (05:49→21:50)
[2018-02-27] MEDS: INSULIN LISPRO 100 UNITS/ML SUBCUT SCH ×4 (06:14→21:50)
[2018-02-27 08:00] VITALS: BP 112/81
[2018-02-27] MEDS: OMEPRAZOLE 20MG CAPSULE EXTENDED RELEASE PO SCH (08:47)
[2018-02-27] MEDS: DILTIAZEM HCL 180MG CAPSULE CD 24HR PO SCH (08:48)
[2018-02-27] MEDS: CARVEDILOL 3.125 MG TABLET PO SCH ×2 (08:48→21:00)
[2018-02-27] MEDS: CLOPIDOGREL 75MG TABLET PO SCH (08:48)
[2018-02-27] MEDS: RIVAROXABAN 15 MG TABLET PO SCH ×2 (08:48→17:00)
[2018-02-27] MEDS: FUROSEMIDE 40MG TABLET PO SCH (08:48)
[2018-02-27] MEDS: DOCUSATE SODIUM 100MG CAPSULE PO SCH ×2 (08:48→17:00)
[2018-02-27] MEDS ORDERED: PANTOPRAZOLE 40MG DR TABLET PO SCH (11:30)
[2018-02-27] MEDS ORDERED: FUROSEMIDE 40MG/4ML VIAL IVP NR (16:53)
[2018-02-27] MEDS: GUAIFENESIN-DM 200MG-20MG/10ML UDC PO PRN ×2 (17:23→23:51)
[2018-02-27 20:00] VITALS: BP 115/66
[2018-02-27] MEDS: ATORVASTATIN CALCIUM 40MG TABLET PO SCH (21:50)
[2018-02-27] MEDS: PANTOPRAZOLE 40MG DR TABLET PO SCH (21:50)
[2018-02-28] MEDS: ALBUTEROL (0.083%) 2.5MG/3ML NEB HHN SCH ×3 (03:03→21:36)
[2018-02-28] MEDS: BLOOD SUGAR DIAGNOSTIC STRIP TEST SCH ×4 (05:39→21:44)
[2018-02-28] MEDS: SUCRALFATE 1 G/10 ML UDC PO SCH ×4 (06:05→21:44)
[2018-02-28] MEDS: INSULIN LISPRO 100 UNITS/ML SUBCUT SCH ×4 (06:07→21:49)
[2018-02-28 08:16] VITALS: BP 122/52
[2018-02-28] MEDS: FUROSEMIDE 40MG TABLET PO SCH (08:38)
[2018-02-28] MEDS: RIVAROXABAN 15 MG TABLET PO SCH ×2 (08:38→17:24)
[2018-02-28] MEDS: PANTOPRAZOLE 40MG DR TABLET PO SCH ×2 (08:38→21:44)
[2018-02-28] MEDS: CLOPIDOGREL 75MG TABLET PO SCH (08:38)
[2018-02-28] MEDS: DILTIAZEM HCL 180MG CAPSULE CD 24HR PO SCH ×2 (08:39→08:48)
[2018-02-28] MEDS: DOCUSATE SODIUM 100MG CAPSULE PO SCH ×2 (08:40→17:00)
[2018-02-28] MEDS: CARVEDILOL 3.125 MG TABLET PO SCH ×3 (08:41→21:00)
[2018-02-28] MEDS: GUAIFENESIN-DM 200MG-20MG/10ML UDC PO PRN (12:30)
[2018-02-28] MEDS: IPRATROPIUM BROMIDE (0.02%) 0.5MG/2.5ML NEB HHN SCH ×2 (16:27→21:37)
[2018-02-28 20:00] VITALS: BP 102/66
[2018-02-28] MEDS: ZOLPIDEM TARTRATE 5MG TABLET PO PRN (21:44)
[2018-02-28] MEDS: ATORVASTATIN CALCIUM 40MG TABLET PO SCH (21:44)
[2018-03-01] MEDS: IPRATROPIUM BROMIDE (0.02%) 0.5MG/2.5ML NEB HHN SCH ×3 (02:07→19:56)
[2018-03-01] MEDS: ALBUTEROL (0.083%) 2.5MG/3ML NEB HHN SCH ×2 (02:07→19:56)
[2018-03-01] MEDS: INSULIN LISPRO 100 UNITS/ML SUBCUT SCH ×4 (06:29→22:27)
[2018-03-01] MEDS: BLOOD SUGAR DIAGNOSTIC STRIP TEST SCH ×4 (06:29→21:00)
[2018-03-01] MEDS: SUCRALFATE 1 G/10 ML UDC PO SCH ×4 (06:29→22:24)
[2018-03-01 08:07] VITALS: BP 116/86
[2018-03-01] MEDS: RIVAROXABAN 15 MG TABLET PO SCH ×2 (09:18→17:20)
[2018-03-01] MEDS: CARVEDILOL 3.125 MG TABLET PO SCH ×2 (09:18→22:25)
[2018-03-01] MEDS: FUROSEMIDE 40MG TABLET PO SCH (09:18)
[2018-03-01] MEDS: DOCUSATE SODIUM 100MG CAPSULE PO SCH ×2 (09:18→17:20)
[2018-03-01] MEDS: PANTOPRAZOLE 40MG DR TABLET PO SCH ×2 (09:18→22:25)
[2018-03-01] MEDS: CLOPIDOGREL 75MG TABLET PO SCH (09:18)
[2018-03-01] MEDS: DILTIAZEM HCL 180MG CAPSULE CD 24HR PO SCH (09:18)
[2018-03-01] MEDS: GUAIFENESIN-DM 200MG-20MG/10ML UDC PO PRN ×2 (12:07→17:28)
[2018-03-01 20:00] VITALS: BP 99/75
[2018-03-01] MEDS: ATORVASTATIN CALCIUM 40MG TABLET PO SCH (22:25)
[2018-03-01] MEDS: ZOLPIDEM TARTRATE 5MG TABLET PO PRN (22:25)
[2018-03-02] MEDS: ALBUTEROL (0.083%) 2.5MG/3ML NEB HHN SCH ×2 (01:55→07:04)
[2018-03-02] MEDS: GUAIFENESIN-DM 200MG-20MG/10ML UDC PO PRN ×2 (03:00→11:43)
[2018-03-02] MEDS: BLOOD SUGAR DIAGNOSTIC STRIP TEST SCH ×2 (05:40→11:41)
[2018-03-02] MEDS: SUCRALFATE 1 G/10 ML UDC PO SCH ×2 (05:40→11:38)
[2018-03-02] MEDS: INSULIN LISPRO 100 UNITS/ML SUBCUT SCH ×2 (05:41→12:34)
[2018-03-02] MEDS: IPRATROPIUM BROMIDE (0.02%) 0.5MG/2.5ML NEB HHN SCH (07:05)
[2018-03-02 08:01] VITALS: BP 109/72
[2018-03-02] MEDS: DILTIAZEM HCL 180MG CAPSULE CD 24HR PO SCH (08:50)
[2018-03-02] MEDS: DOCUSATE SODIUM 100MG CAPSULE PO SCH ×2 (08:51→08:56)
[2018-03-02] MEDS: CARVEDILOL 3.125 MG TABLET PO SCH (08:52)
[2018-03-02] MEDS: CLOPIDOGREL 75MG TABLET PO SCH (08:53)
[2018-03-02] MEDS: FUROSEMIDE 40MG TABLET PO SCH (08:53)
[2018-03-02] MEDS: RIVAROXABAN 15 MG TABLET PO SCH (08:55)
[2018-03-02] MEDS: PANTOPRAZOLE 40MG DR TABLET PO SCH (10:53)
[2018-03-02 14:11] VITALS: BP 109/72
[2018-03-06] MEDS ORDERED: RIVAROXABAN 20 MG TABLET PO SCH (17:00)
[2018-03-12] MEDS ORDERED: RIVAROXABAN 20 MG TABLET PO SCH (17:00)
== END 2018-03-02 16:00 | DRG 947 ==
PROVIDERS: ADMIT Psychiatry & Neurology Neurology; ATTEND Family Medicine
PROC: 0DJ08ZZ Inspection of Upper Intestinal Tract, Via Natural or Artificial Opening Endoscopic (ICD-10-PCS; principal; 2018-02-21)
DX: R53.81 Other malaise (principal); J96.00 Acute respiratory failure, unspecified whether with hypoxia or hypercapnia; I26.99 Other pulmonary embolism without acute cor pulmonale; A41.9 Sepsis, unspecified organism; J18.9 Pneumonia, unspecified organism; I50.23 Acute on chronic systolic (congestive) heart failure; N39.0 Urinary tract infection, site not specified; E87.2 Acidosis; J98.11 Atelectasis; F32.2 Major depressive disorder, single episode, severe without psychotic features; I47.2 Ventricular tachycardia; I48.1 Persistent atrial fibrillation; K22.10 Ulcer of esophagus without bleeding; I43 Cardiomyopathy in diseases classified elsewhere; I11.0 Hypertensive heart disease with heart failure; I48.2 Chronic atrial fibrillation; I27.20 Pulmonary hypertension, unspecified; Z16.12 Extended spectrum beta lactamase (ESBL) resistance; E11.9 Type 2 diabetes mellitus without complications; Z88.0 Allergy status to penicillin; R74.0 Nonspecific elevation of levels of transaminase and lactic acid dehydrogenase [LDH]; Z90.710 Acquired absence of both cervix and uterus; Z85.41 Personal history of malignant neoplasm of cervix uteri; I08.1 Rheumatic disorders of both mitral and tricuspid valves; R13.10 Dysphagia, unspecified; E78.5 Hyperlipidemia, unspecified; I25.10 Atherosclerotic heart disease of native coronary artery without angina pectoris; Z79.84 Long term (current) use of oral hypoglycemic drugs; Z86.711 Personal history of pulmonary embolism
CPT/HCPCS: 36415; 71045; 76700; 80048; 80076; 82607; 82728; 82746; 82962; 83540; 83550; 83735; 83880; 84484; 85027; 85044; 92523; 92610; 93005; 94618; 94640; 97110; 97116; 97162; 97166; 97530; 97535; G0515; J1815; J1940; J2250; J3010; J3480; J7050; J7060; J7611; J7620; Q0163

== ENCOUNTER 2018-03-21 06:34 | Inpatient (IN) | payer MEDICARE, BC ==
[~2018-03-21] VITALS: Ht 162.6 cm; Wt 67.1 kg
[2018-03-21] MEDS ORDERED: FENTANYL CITRATE/PF 50MCG/ML 2ML VIAL IV ONE (07:30)
[2018-03-21] MEDS ORDERED: NITROGLYCERIN OINT 1GM/INCH UDPKT TD ONE (07:30)
[2018-03-21] MEDS ORDERED: ONDANSETRON HCL 4MG/2ML INJ IV ONE (07:30)
[2018-03-21] MEDS ORDERED: DILTIAZEM HCL 5MG/ML 5ML VIAL IV ONE (07:30)
[2018-03-21 08:06] LABS: BASOPHILS % 0.9 % (0.0-2.0); EOSINOPHILS % 1.3 % (0.0-5.0); HEMATOCRIT. 32.9 % (36.0-48.0); HEMOGLOBIN. 10.7 g/dL (12.0-16.0); LYMPHOCYTES % 23.5 % (20.0-50.0); MEAN CORPUSCULAR HEMOGLOBIN 26.4 pg (28.0-32.0); MEAN CORPUSCULAR VOLUME 81.3 fL (81.0-99.0); MEAN PLATELET VOLUME 9.5 fl (7.4-10.4); MONOCYTES % 10.8 % (2.0-8.0); NEUTROPHILS % 63.5 % (40.0-76.0); PLATELET 241 x1000/uL (130-400); RED BLOOD CELL COUNT 4.04 mill/uL (4.2-5.4); RED CELL DISTRIBUTION WIDTH 17.5 % (11.6-14.6)
[2018-03-21 08:10] LABS: CHLORIDE 106 mEq/L (98-107)
[2018-03-21 08:14] LABS: INR 1.8; PARTIAL THROMBOPLASTIN TIME 29.4 sec (23.4-31.0); PROTHROMBIN TIME 17.6 sec (9.1-11.1)
[2018-03-21] MEDS ORDERED: KCL 10MEQ/50ML PREMIX 50 ML IV ONE (08:30)
[2018-03-21] MEDS ORDERED: POTASSIUM CHLORIDE 20MEQ TABLET SR PO ONE (08:30)
[2018-03-21] MEDS ORDERED: MAGNESIUM 1 G PREMIX 100 ML IV ONE (09:00)
[2018-03-21] MEDS ORDERED: FUROSEMIDE 20MG/2ML VIAL IVP ONE (14:15)
[2018-03-21] MEDS ORDERED: LORAZEPAM 0.5MG TABLET PO PRN (16:00)
[2018-03-21] MEDS ORDERED: ONDANSETRON HCL 4MG/2ML INJ IV PRN ×2 (16:00→16:15)
[2018-03-21] MEDS ORDERED: ACETAMINOPHEN 325MG TABLET PO PRN ×2 (16:00→16:15)
[2018-03-21] MEDS ORDERED: HYDROCODONE/ACETAMINOPHEN 5/325MG TABLET PO PRN ×2 (16:00→16:15)
[2018-03-21] MEDS ORDERED: IPRATROPIUM/ALBUTEROL 0.5-3(2.5)MG/3ML NEB INH PRN ×2 (16:00→16:15)
[2018-03-21] MEDS ORDERED: DOCUSATE SODIUM 100MG CAPSULE PO PRN (16:00)
[2018-03-21] MEDS ORDERED: LORAZEPAM 1MG TABLET PO PRN (16:15)
[2018-03-21] MEDS ORDERED: POTASSIUM CHLORIDE 20MEQ TABLET SR PO SCH (17:00)
[2018-03-21] MEDS ORDERED: RIVAROXABAN 10 MG TABLET PO SCH (17:00)
[2018-03-21] MEDS ORDERED: FUROSEMIDE 40MG/4ML VIAL IVP SCH (17:15)
[2018-03-21] MEDS ORDERED: DEXTROSE 50% WATER 50ML SYRINGE IV PRN (17:30)
[2018-03-21 17:47] VITALS: BP 118/89
[2018-03-21] MEDS ORDERED: FERROUS SULFATE 300MG/5ML UDC PO SCH (18:00)
[2018-03-21] MEDS: FUROSEMIDE 40MG/4ML VIAL IVP SCH (18:45)
[2018-03-21] MEDS: POTASSIUM CHLORIDE 20MEQ TABLET SR PO SCH (18:45)
[2018-03-21] MEDS: INSULIN LISPRO 100 UNITS/ML SUBCUT SCH ×2 (18:46→21:57)
[2018-03-21 18:49] VITALS: BP 118/89
[2018-03-21 18:51] LABS: CREATINE KINASE 78 IU/L (26-192)
[2018-03-21 18:52] LABS: CREATINE KINASE MB FRACTION < 1.0 ng/mL (0.5-3.6)
[2018-03-21 20:00] VITALS: BP 114/55
[2018-03-21] MEDS: BLOOD SUGAR DIAGNOSTIC STRIP TEST SCH (20:33)
[2018-03-21] MEDS ORDERED: SUCR1TAB30 PO (20:57)
[2018-03-21] MEDS ORDERED: SACU1TAB MT (20:57)
[2018-03-21] MEDS ORDERED: RIVA20TA MT (20:57)
[2018-03-21] MEDS ORDERED: ZOLP5TAB2 PO (20:57)
[2018-03-21] MEDS ORDERED: PANT40TA4 PO (20:57)
[2018-03-21] MEDS ORDERED: CARV3.1242 PO (20:57)
[2018-03-21] MEDS ORDERED: ATROV IH (20:57)
[2018-03-21] MEDS ORDERED: LIP40 MT (20:57)
[2018-03-21] MEDS ORDERED: CLOP75TA16 MT (20:57)
[2018-03-21] MEDS ORDERED: FURO-151 PO (20:57)
[2018-03-21] MEDS ORDERED: TRAM100C3 PO (20:57)
[2018-03-21] MEDS ORDERED: ASCORBIC ACID 250 MG TABLET PO SCH (21:00)
[2018-03-21] MEDS: ASCORBIC ACID 250 MG TABLET PO SCH (21:55)
[2018-03-21] MEDS: ATORVASTATIN CALCIUM 10MG TABLET PO SCH (21:55)
[2018-03-21 22:00] VITALS: BP 103/71
[2018-03-21] MEDS: DILTIAZEM HCL 60MG TABLET PO SCH (22:00)
[2018-03-22] VITALS (12 sets, daily range): BP systolic 101–132; BP diastolic 56–82
[2018-03-22] MEDS: DILTIAZEM HCL 60MG TABLET PO SCH ×3 (05:23→22:00)
[2018-03-22] MEDS: BLOOD SUGAR DIAGNOSTIC STRIP TEST SCH ×4 (06:36→20:41)
[2018-03-22 07:47] LABS: BASOPHILS % 0.7 % (0.0-2.0); EOSINOPHILS % 2.1 % (0.0-5.0); HEMATOCRIT. 32.7 % (36.0-48.0); HEMOGLOBIN. 10.5 g/dL (12.0-16.0); LYMPHOCYTES % 25.9 % (20.0-50.0); MEAN CORPUSCULAR HEMOGLOBIN 26.2 pg (28.0-32.0); MEAN CORPUSCULAR VOLUME 81.8 fL (81.0-99.0); MEAN PLATELET VOLUME 9.2 fl (7.4-10.4); MONOCYTES % 10.2 % (2.0-8.0); NEUTROPHILS % 61.1 % (40.0-76.0); PLATELET 220 x1000/uL (130-400); RED CELL DISTRIBUTION WIDTH 17.5 % (11.6-14.6)
[2018-03-22] MEDS ORDERED: ENOXAPARIN 40MG/0.4ML SYR SUBCUT SCH (08:00)
[2018-03-22 08:02] LABS: CHLORIDE 105 mEq/L (98-107)
[2018-03-22] MEDS: FUROSEMIDE 40MG/4ML VIAL IVP SCH ×2 (10:08→17:55)
[2018-03-22] MEDS: FERROUS SULFATE 300MG/5ML UDC PO SCH ×3 (10:08→17:55)
[2018-03-22] MEDS: ASCORBIC ACID 250 MG TABLET PO SCH ×2 (10:09→20:58)
[2018-03-22] MEDS: POTASSIUM CHLORIDE 20MEQ TABLET SR PO SCH ×2 (10:09→17:55)
[2018-03-22] MEDS: INSULIN LISPRO 100 UNITS/ML SUBCUT SCH ×4 (10:15→20:57)
[2018-03-22] MEDS ORDERED: POTASSIUM CHLORIDE 20MEQ/PACKET PO NR (14:45)
[2018-03-22] MEDS: ATORVASTATIN CALCIUM 10MG TABLET PO SCH (20:57)
[2018-03-23] VITALS (22 sets, daily range): BP systolic 97–192; BP diastolic 51–80
[2018-03-23 00:27] LABS: CLARITY URINE CLEAR (CLEAR); COLOR URINE YELLOW (YELLOW); KETONES URINE NEGATIVE (NEGATIVE); LEUKOCYTE ESTERASE URINE 1+ (NEGATIVE); NITRITE URINE POSITIVE (NEGATIVE); OCCULT BLOOD URINE NEGATIVE (NEGATIVE); PH URINE 7.5 (4.5-8.0); PROTEIN URINE NEGATIVE (NEGATIVE); SPECIFIC GRAVITY URINE 1.009 (1.005-1.030)
[2018-03-23 00:49] LABS: *BARBITURATES SCREEN URINE NEGATIVE (NEGATIVE); *BENZODIAZEPINES SCREEN URINE NEGATIVE (NEGATIVE); *COCAINE SCREEN URINE NEGATIVE (NEGATIVE); METHADONE URINE SCREEN NEGATIVE (NEGATIVE); OPIATES URINE SCREEN NEGATIVE (NEGATIVE)
[2018-03-23 00:50] LABS: *AMPHETAMINES SCREEN URINE NEGATIVE (NEGATIVE); CANNABINOID URINE SCREEN NEGATIVE (NEGATIVE); PHENCYCLIDINE URINE SCREEN NEGATIVE (NEGATIVE)
[2018-03-23] MEDS: DILTIAZEM HCL 60MG TABLET PO SCH ×3 (05:46→21:43)
[2018-03-23 06:31] LABS: BASOPHILS % 0.8 % (0.0-2.0); EOSINOPHILS % 3.5 % (0.0-5.0); HEMATOCRIT. 32.4 % (36.0-48.0); HEMOGLOBIN. 10.5 g/dL (12.0-16.0); LYMPHOCYTES % 32.6 % (20.0-50.0); MEAN CORPUSCULAR HEMOGLOBIN 26.4 pg (28.0-32.0); MEAN CORPUSCULAR VOLUME 81.7 fL (81.0-99.0); MEAN PLATELET VOLUME 9.2 fl (7.4-10.4); MONOCYTES % 10.1 % (2.0-8.0); PLATELET 229 x1000/uL (130-400); RED BLOOD CELL COUNT 3.96 mill/uL (4.2-5.4); RED CELL DISTRIBUTION WIDTH 17.7 % (11.6-14.6)
[2018-03-23 06:47] LABS: CHLORIDE 104 mEq/L (98-107)
[2018-03-23] MEDS: FUROSEMIDE 40MG/4ML VIAL IVP SCH ×2 (06:48→18:32)
[2018-03-23] MEDS: BLOOD SUGAR DIAGNOSTIC STRIP TEST SCH ×4 (06:53→21:42)
[2018-03-23] MEDS: FERROUS SULFATE 300MG/5ML UDC PO SCH ×3 (07:20→18:32)
[2018-03-23] MEDS: INSULIN LISPRO 100 UNITS/ML SUBCUT SCH ×4 (07:20→21:42)
[2018-03-23] MEDS: POTASSIUM CHLORIDE 20MEQ TABLET SR PO SCH ×2 (08:25→17:00)
[2018-03-23] MEDS: ASCORBIC ACID 250 MG TABLET PO SCH ×2 (08:25→21:40)
[2018-03-23] MEDS ORDERED: MIDAZOLAM HCL 2 MG/2 ML VIAL ONE (09:57)
[2018-03-23] MEDS ORDERED: LIDOCAINE HCL 1% 20ML VIAL (Pyxis) INJ ONE (09:58)
[2018-03-23] MEDS ORDERED: FENTANYL CITRATE/PF 50MCG/ML 2ML VIAL ONE (09:58)
[2018-03-23] MEDS ORDERED: IODIXANOL 320MG/ML 100 ML BOTTLE IV ONE (09:58)
[2018-03-23] MEDS ORDERED: KCL 20MEQ/100ML PREMIX 100 ML IV ONE (09:59)
[2018-03-23] MEDS ORDERED: ATROPINE SULFATE 1MG/10ML SYR IV PRN (11:00)
[2018-03-23] MEDS ORDERED: ONDANSETRON HCL 4MG/2ML INJ IV PRN (11:00)
[2018-03-23] MEDS ORDERED: ACETAMINOPHEN 325MG TABLET PO PRN (11:00)
[2018-03-23] MEDS ORDERED: NITROGLYCERIN 50MCG/ML 10ML VIAL (CATH LAB) IV ONE (15:38)
[2018-03-23] MEDS ORDERED: NICARDIPINE 100MCG/ML 10ML VIAL (CATH LAB) IV ONE (15:38)
[2018-03-23] MEDS: DOCUSATE SODIUM 100MG CAPSULE PO PRN (19:53)
[2018-03-23] MEDS: ATORVASTATIN CALCIUM 10MG TABLET PO SCH (21:40)
[2018-03-24] VITALS (14 sets, daily range): BP systolic 95–128; BP diastolic 27–80
[2018-03-24] MEDS: DILTIAZEM HCL 60MG TABLET PO SCH ×3 (05:15→22:00)
[2018-03-24 05:51] LABS: BASOPHILS % 0.3 % (0.0-2.0); HEMATOCRIT. 34.6 % (36.0-48.0); HEMOGLOBIN. 10.9 g/dL (12.0-16.0); LYMPHOCYTES % 8.6 % (20.0-50.0); MEAN CORPUSCULAR HEMOGLOBIN 25.9 pg (28.0-32.0); MEAN CORPUSCULAR VOLUME 81.8 fL (81.0-99.0); MEAN PLATELET VOLUME 9.3 fl (7.4-10.4); MONOCYTES % 7.1 % (2.0-8.0); PLATELET 249 x1000/uL (130-400); RED BLOOD CELL COUNT 4.23 mill/uL (4.2-5.4); RED CELL DISTRIBUTION WIDTH 17.6 % (11.6-14.6)
[2018-03-24 06:01] LABS: CHLORIDE 100 mEq/L (98-107)
[2018-03-24] MEDS: BLOOD SUGAR DIAGNOSTIC STRIP TEST SCH ×4 (06:42→21:08)
[2018-03-24] MEDS: FUROSEMIDE 40MG/4ML VIAL IVP SCH ×2 (07:47→17:33)
[2018-03-24 08:17] LABS: CLARITY URINE CLOUDY (CLEAR); COLOR URINE YELLOW (YELLOW); KETONES URINE NEGATIVE (NEGATIVE); LEUKOCYTE ESTERASE URINE 1+ (NEGATIVE); NITRITE URINE POSITIVE (NEGATIVE); OCCULT BLOOD URINE NEGATIVE (NEGATIVE); PROTEIN URINE NEGATIVE (NEGATIVE); SPECIFIC GRAVITY URINE 1.017 (1.005-1.030); UROBILINOGEN URINE 0.2 E.U./dL (0.2-1.0)
[2018-03-24] MEDS ORDERED: BARIUM SULFATE 450ML ORAL SUSP PO SCH (09:30)
[2018-03-24] MEDS ORDERED: AMPICILLIN SOD/SULBACTAM NA 3 G in SODIUM CHLORIDE 0.9% 100 ML IV SCH (09:30)
[2018-03-24] MEDS: FERROUS SULFATE 300MG/5ML UDC PO SCH ×3 (09:36→17:20)
[2018-03-24] MEDS: ASCORBIC ACID 250 MG TABLET PO SCH ×2 (09:36→21:07)
[2018-03-24] MEDS: POTASSIUM CHLORIDE 20MEQ TABLET SR PO SCH ×2 (09:36→17:33)
[2018-03-24] MEDS: INSULIN LISPRO 100 UNITS/ML SUBCUT SCH ×4 (09:37→21:08)
[2018-03-24] MEDS ORDERED: LEVOFLOXACIN 750MG PREMIX 150 ML IV SCH (10:00)
[2018-03-24] MEDS ORDERED: IOHEXOL-300 50 ML BOTTLE IV ONE (11:08)
[2018-03-24] MEDS ORDERED: FE300LUD PO (12:31)
[2018-03-24] MEDS: NITROFURANTOIN 100MG M/M CAPSULE PO SCH ×2 (12:31→21:07)
[2018-03-24] MEDS ORDERED: GLIP5TAB12 MT (12:31)
[2018-03-24] MEDS ORDERED: POTA20TA82 PO (12:31)
[2018-03-24] MEDS ORDERED: ASC250 PO (12:31)
[2018-03-24] MEDS ORDERED: NITR100C11 PO (12:31)
[2018-03-24] MEDS: INSULIN GLARGINE UD 100 UNITS/ML SYR SUBCUT SCH (12:32)
[2018-03-24] MEDS ORDERED: METF500T7 MT (12:36)
[2018-03-24] MEDS: DOCUSATE SODIUM 100MG CAPSULE PO PRN (17:33)
[2018-03-24] MEDS: ATORVASTATIN CALCIUM 10MG TABLET PO SCH (21:07)
[2018-03-25] VITALS (13 sets, daily range): BP systolic 95–144; BP diastolic 63–94
[2018-03-25] MEDS: FUROSEMIDE 40MG/4ML VIAL IVP SCH ×2 (06:24→17:42)
[2018-03-25] MEDS: BLOOD SUGAR DIAGNOSTIC STRIP TEST SCH ×4 (06:24→20:26)
[2018-03-25] MEDS: DILTIAZEM HCL 60MG TABLET PO SCH ×2 (06:24→13:03)
[2018-03-25 06:35] LABS: BASOPHILS % 0.4 % (0.0-2.0); EOSINOPHILS % 1.8 % (0.0-5.0); HEMATOCRIT. 32.8 % (36.0-48.0); HEMOGLOBIN. 10.6 g/dL (12.0-16.0); LYMPHOCYTES % 23.5 % (20.0-50.0); MEAN CORPUSCULAR HEMOGLOBIN 26.1 pg (28.0-32.0); MEAN CORPUSCULAR VOLUME 81.1 fL (81.0-99.0); MONOCYTES % 9.2 % (2.0-8.0); NEUTROPHILS % 65.1 % (40.0-76.0); PLATELET 235 x1000/uL (130-400); RED BLOOD CELL COUNT 4.05 mill/uL (4.2-5.4); RED CELL DISTRIBUTION WIDTH 17.6 % (11.6-14.6)
[2018-03-25] MEDS: INSULIN LISPRO 100 UNITS/ML SUBCUT SCH ×4 (06:38→20:28)
[2018-03-25 07:11] LABS: CHLORIDE 101 mEq/L (98-107)
[2018-03-25] MEDS: ASCORBIC ACID 250 MG TABLET PO SCH ×2 (08:01→20:19)
[2018-03-25] MEDS: FERROUS SULFATE 300MG/5ML UDC PO SCH ×3 (08:01→17:42)
[2018-03-25] MEDS: NITROFURANTOIN 100MG M/M CAPSULE PO SCH ×2 (08:01→20:19)
[2018-03-25] MEDS: POTASSIUM CHLORIDE 20MEQ TABLET SR PO SCH ×2 (08:01→17:41)
[2018-03-25] MEDS: INSULIN GLARGINE UD 100 UNITS/ML SYR SUBCUT SCH (09:10)
[2018-03-25] MEDS: ATORVASTATIN CALCIUM 10MG TABLET PO SCH (20:19)
== END 2018-03-25 22:07 | DRG 286 ==
LOC: ER 06:34 → UNDOADMIN 08:18 → 5EST 08:18 → 3WST 08:18 → EDBEDREQ 08:32 → ENRESERV 14:26 → ER 14:43 → CANBEDREQ 15:29 → 5EST 15:34 → ORIP 15:34 → CANBEDREQ 15:53 → ENRESERV 16:25
PROVIDERS: ADMIT Internal Medicine; ATTEND Internal Medicine
PROC: 4A023N8 Measurement of Cardiac Sampling and Pressure, Bilateral, Percutaneous Approach (ICD-10-PCS; principal; 2018-03-23)
PROC: B2111ZZ Fluoroscopy of Multiple Coronary Arteries using Low Osmolar Contrast (ICD-10-PCS; 2018-03-23)
PROC: B2151ZZ Fluoroscopy of Left Heart using Low Osmolar Contrast (ICD-10-PCS; 2018-03-23)
DX: I48.1 Persistent atrial fibrillation (principal); I50.43 Acute on chronic combined systolic (congestive) and diastolic (congestive) heart failure; D68.9 Coagulation defect, unspecified; N39.0 Urinary tract infection, site not specified; E44.1 Mild protein-calorie malnutrition; I11.0 Hypertensive heart disease with heart failure; I48.92 Unspecified atrial flutter; I42.0 Dilated cardiomyopathy; E87.6 Hypokalemia; E11.9 Type 2 diabetes mellitus without complications; D50.9 Iron deficiency anemia, unspecified; I48.2 Chronic atrial fibrillation; I27.20 Pulmonary hypertension, unspecified; E78.5 Hyperlipidemia, unspecified; E83.42 Hypomagnesemia; E78.00 Pure hypercholesterolemia, unspecified; I08.1 Rheumatic disorders of both mitral and tricuspid valves; I25.10 Atherosclerotic heart disease of native coronary artery without angina pectoris; I25.5 Ischemic cardiomyopathy; Z79.01 Long term (current) use of anticoagulants; Z79.4 Long term (current) use of insulin; Z85.41 Personal history of malignant neoplasm of cervix uteri; Z86.711 Personal history of pulmonary embolism; Z87.19 Personal history of other diseases of the digestive system; Z90.710 Acquired absence of both cervix and uterus; Z95.810 Presence of automatic (implantable) cardiac defibrillator; Z88.0 Allergy status to penicillin; Z79.84 Long term (current) use of oral hypoglycemic drugs; Z79.899 Other long term (current) drug therapy
CPT/HCPCS: 36415; 71045; 74176; 80048; 80305; 82550; 82553; 82962; 83036; 83735; 83880; 84443; 84484; 87077; 87186; 93005; 93460; 96374; 97162; 99285; A4565; C1760; C1769; C1887; C1893; J1644; J1650; J1815; J1940; J1956; J2250; J2405; J3010; J3475; J3480; J3490; J7040; J7050; Q9967; A4315

== ENCOUNTER 2018-03-29 05:52 | Inpatient (IN) | payer MEDICARE, BC ==
[2018-03-29] VITALS (16 sets, daily range): BP systolic 88–112; BP diastolic 49–77
[~2018-03-29] VITALS: Ht 162.6 cm; Wt 75.7 kg
[~2018-03-29 05:52] MED LIST changes: +ASC250 PO; +ATROV IH; +CARV3.1242 PO; +FE300LUD PO; +FURO-151 PO; +GLIP5TAB12 MT; -IBUP-2030 PO; +LIP40 MT; -LOSA25TA12 PO; -METF-415 PO; +METF500T7 MT; -METO25TA6 PO; -NITR-87 PO; +NITR100C11 PO; +PANT40TA4 PO; +POTA20TA82 PO; -PRAV40TA58 PO; +RIVA20TA MT; +SACU1TAB MT; +SUCR1TAB30 PO; +TRAM100C3 PO; +ZOLP5TAB2 PO
[2018-03-29 07:13] LABS: INR 1.4; PARTIAL THROMBOPLASTIN TIME 33.6 sec (23.4-31.0)
[2018-03-29 07:18] LABS: BASOPHILS % 0.6 % (0.0-2.0); EOSINOPHILS % 0.5 % (0.0-5.0); HEMOGLOBIN. 11.3 g/dL (12.0-16.0); LYMPHOCYTES % 20.5 % (20.0-50.0); MEAN CORPUSCULAR HEMOGLOBIN 27.1 pg (28.0-32.0); MEAN CORPUSCULAR VOLUME 81.4 fL (81.0-99.0); MEAN PLATELET VOLUME 8.9 fl (7.4-10.4); MONOCYTES % 10.5 % (2.0-8.0); NEUTROPHILS % 67.9 % (40.0-76.0); PLATELET 285 x1000/uL (130-400); RED BLOOD CELL COUNT 4.18 mill/uL (4.2-5.4); RED CELL DISTRIBUTION WIDTH 18.6 % (11.6-14.6)
[2018-03-29 07:53] LABS: CHLORIDE 99 mEq/L (98-107)
[2018-03-29] MEDS ORDERED: MIDAZOLAM HCL 2 MG/2 ML VIAL ONE (08:27)
[2018-03-29] MEDS ORDERED: DOPAMINE 400MG/250ML PREMIX 250 ML IV SCH (08:30)
[2018-03-29] MEDS ORDERED: KETAMINE HCL 50 MG/ML 10ML IV NR (08:30)
[2018-03-29] MEDS ORDERED: ROCURONIUM BROMIDE 10MG/ML VIAL 5ML IV ONE (09:06)
[2018-03-29] MEDS ORDERED: GENTAMICIN/NS IRRIGATION 500 ML IR ONE (09:07)
[2018-03-29] MEDS ORDERED: GENTAMICIN SULF 40MG/ML 2ML VIAL ONE (09:07)
[2018-03-29] MEDS ORDERED: IOHEXOL-300 100 ML BOTTLE ONE (09:11)
[2018-03-29] MEDS ORDERED: DOPAMINE 400MG/250ML PREMIX 250 ML IV ONE (09:27)
[2018-03-29] MEDS ORDERED: VALS40TA11 PO (09:42)
[2018-03-29] MEDS ORDERED: LIDOCAINE HCL/PF 1% 10 MG/ML 5ML VIAL ONE ×3 (10:09→11:09)
[2018-03-29] MEDS ORDERED: PROPOFOL 200MG/20ML VIAL IV ONE (10:28)
[2018-03-29] MEDS ORDERED: METOPROLOL TARTRATE 5MG/5ML VIAL IV ONE ×2 (11:07→11:40)
[2018-03-29] MEDS ORDERED: FUROSEMIDE 20MG/2ML VIAL ONE (12:48)
[2018-03-29] MEDS ORDERED: HYDROCODONE/ACETAMINOPHEN 5/325MG TABLET PO PRN (13:00)
[2018-03-29] MEDS ORDERED: ACETAMINOPHEN 500MG TABLET PO NR (13:45)
[2018-03-29] MEDS ORDERED: ONDANSETRON HCL 4MG/2ML INJ IV PRN (13:45)
[2018-03-29] MEDS: GLIPIZIDE 5MG TABLET PO SCH (17:01)
[2018-03-29] MEDS: SUCRALFATE 1G TABLET PO SCH ×2 (17:01→20:51)
[2018-03-29] MEDS: RIVAROXABAN 20 MG TABLET PO SCH (17:02)
[2018-03-29] MEDS: FERROUS SULFATE 300MG/5ML UDC PO SCH (17:02)
[2018-03-29] MEDS: TRAMADOL 50MG TABLET PO PRN (17:03)
[2018-03-29] MEDS: METOPROLOL TARTRATE 50MG TABLET PO SCH ×2 (17:03→20:56)
[2018-03-29] MEDS ORDERED: DILTIAZEM HCL 30MG TABLET PO NR (18:15)
[2018-03-29] MEDS ORDERED: DEXTROSE 50% WATER 50ML SYRINGE IV PRN (19:30)
[2018-03-29] MEDS: NITROFURANTOIN 100MG M/M CAPSULE PO SCH (20:51)
[2018-03-29] MEDS: ATORVASTATIN CALCIUM 40MG TABLET PO SCH (21:00)
[2018-03-29] MEDS: INSULIN LISPRO 100 UNITS/ML SUBCUT SCH (21:06)
[2018-03-29] MEDS: BLOOD SUGAR DIAGNOSTIC STRIP TEST SCH (21:07)
[2018-03-30] VITALS (19 sets, daily range): BP systolic 83–127; BP diastolic 46–72
[2018-03-30] MEDS: VANCOMYCIN 1 G PREMIX 200 ML IV SCH ×2 (00:04→09:12)
[2018-03-30] MEDS: DILTIAZEM HCL 30MG TABLET PO SCH ×5 (06:00→23:13)
[2018-03-30] MEDS: SUCRALFATE 1G TABLET PO SCH ×4 (06:11→20:45)
[2018-03-30] MEDS: PANTOPRAZOLE 40MG DR TABLET PO SCH (06:11)
[2018-03-30 06:13] LABS: BASOPHILS % 0.8 % (0.0-2.0); EOSINOPHILS % 0.3 % (0.0-5.0); HEMATOCRIT. 33.5 % (36.0-48.0); HEMOGLOBIN. 10.7 g/dL (12.0-16.0); MEAN CORPUSCULAR HEMOGLOBIN 26.2 pg (28.0-32.0); MEAN CORPUSCULAR VOLUME 81.9 fL (81.0-99.0); MONOCYTES % 9.9 % (2.0-8.0); PLATELET 246 x1000/uL (130-400); RED BLOOD CELL COUNT 4.09 mill/uL (4.2-5.4); RED CELL DISTRIBUTION WIDTH 18.5 % (11.6-14.6)
[2018-03-30] MEDS: GLIPIZIDE 5MG TABLET PO SCH ×3 (06:50→17:58)
[2018-03-30] MEDS: BLOOD SUGAR DIAGNOSTIC STRIP TEST SCH ×4 (07:01→20:35)
[2018-03-30] MEDS: FERROUS SULFATE 300MG/5ML UDC PO SCH ×4 (07:20→17:58)
[2018-03-30] MEDS: INSULIN LISPRO 100 UNITS/ML SUBCUT SCH ×4 (07:37→20:43)
[2018-03-30] MEDS: ONDANSETRON HCL 4MG/2ML INJ IV PRN ×2 (08:11→17:58)
[2018-03-30] MEDS: NITROFURANTOIN 100MG M/M CAPSULE PO SCH ×3 (09:00→20:45)
[2018-03-30] MEDS: METOPROLOL TARTRATE 25MG TABLET PO SCH ×3 (09:00→20:46)
[2018-03-30] MEDS: LOSARTAN POTASSIUM 50 MG TABLET PO SCH (09:00)
[2018-03-30] MEDS: POTASSIUM CHLORIDE 20MEQ TABLET SR PO SCH ×2 (09:00→09:04)
[2018-03-30] MEDS: FUROSEMIDE 40MG TABLET PO SCH ×2 (09:04→12:15)
[2018-03-30] MEDS: RIVAROXABAN 20 MG TABLET PO SCH (17:59)
[2018-03-30] MEDS: ATORVASTATIN CALCIUM 40MG TABLET PO SCH (20:45)
[2018-03-31] VITALS (14 sets, daily range): BP systolic 94–121; BP diastolic 54–74
[2018-03-31] MEDS: SUCRALFATE 1G TABLET PO SCH ×4 (05:51→20:31)
[2018-03-31] MEDS: PANTOPRAZOLE 40MG DR TABLET PO SCH (05:51)
[2018-03-31] MEDS: GLIPIZIDE 5MG TABLET PO SCH ×2 (05:51→18:18)
[2018-03-31] MEDS: DILTIAZEM HCL 30MG TABLET PO SCH ×3 (05:53→18:00)
[2018-03-31] MEDS: INSULIN LISPRO 100 UNITS/ML SUBCUT SCH ×4 (07:20→20:29)
[2018-03-31] MEDS: FERROUS SULFATE 300MG/5ML UDC PO SCH ×3 (07:20→17:07)
[2018-03-31] MEDS: BLOOD SUGAR DIAGNOSTIC STRIP TEST SCH ×4 (07:35→20:22)
[2018-03-31] MEDS: ONDANSETRON HCL 4MG/2ML INJ IV PRN (08:11)
[2018-03-31] MEDS ORDERED: METOCLOPRAMIDE HCL 10MG/2ML VIAL IV PRN (08:30)
[2018-03-31] MEDS: LOSARTAN POTASSIUM 50 MG TABLET PO SCH (09:00)
[2018-03-31] MEDS: NITROFURANTOIN 100MG M/M CAPSULE PO SCH ×2 (09:00→20:30)
[2018-03-31] MEDS: METOPROLOL TARTRATE 25MG TABLET PO SCH ×2 (09:04→20:33)
[2018-03-31] MEDS: POTASSIUM CHLORIDE 20MEQ TABLET SR PO SCH (10:23)
[2018-03-31] MEDS: FUROSEMIDE 40MG TABLET PO SCH (10:23)
[2018-03-31] MEDS: DOCUSATE SODIUM 100MG CAPSULE PO SCH ×2 (10:23→18:18)
[2018-03-31] MEDS: TRAMADOL 50MG TABLET PO PRN (12:16)
[2018-03-31 14:24] LABS: CLARITY URINE CLOUDY (CLEAR); COLOR URINE DARK YELLOW (YELLOW); KETONES URINE 1+ (NEGATIVE); LEUKOCYTE ESTERASE URINE 2+ (NEGATIVE); NITRITE URINE NEGATIVE (NEGATIVE); OCCULT BLOOD URINE NEGATIVE (NEGATIVE); PH URINE 5.5 (4.5-8.0); PROTEIN URINE 1+ (NEGATIVE); SPECIFIC GRAVITY URINE 1.015 (1.005-1.030)
[2018-03-31] MEDS: RIVAROXABAN 20 MG TABLET PO SCH (18:17)
[2018-03-31] MEDS: ATORVASTATIN CALCIUM 40MG TABLET PO SCH (20:31)
[2018-04-01] VITALS (12 sets, daily range): BP systolic 90–123; BP diastolic 57–81
[2018-04-01] MEDS: SUCRALFATE 1G TABLET PO SCH ×4 (06:05→20:36)
[2018-04-01] MEDS: GLIPIZIDE 5MG TABLET PO SCH ×2 (06:05→17:13)
[2018-04-01] MEDS: DILTIAZEM HCL 30MG TABLET PO SCH ×5 (06:05→23:19)
[2018-04-01] MEDS: BLOOD SUGAR DIAGNOSTIC STRIP TEST SCH ×4 (06:07→20:40)
[2018-04-01] MEDS: FERROUS SULFATE 300MG/5ML UDC PO SCH ×3 (07:20→17:20)
[2018-04-01] MEDS: INSULIN LISPRO 100 UNITS/ML SUBCUT SCH ×4 (07:20→20:36)
[2018-04-01] MEDS: METOPROLOL TARTRATE 25MG TABLET PO SCH ×2 (08:06→20:39)
[2018-04-01] MEDS: FUROSEMIDE 40MG TABLET PO SCH (08:06)
[2018-04-01] MEDS: DOCUSATE SODIUM 100MG CAPSULE PO SCH ×2 (08:06→17:13)
[2018-04-01] MEDS: POTASSIUM CHLORIDE 20MEQ TABLET SR PO SCH (08:07)
[2018-04-01] MEDS: NITROFURANTOIN 100MG M/M CAPSULE PO SCH ×2 (08:43→20:40)
[2018-04-01] MEDS: LOSARTAN POTASSIUM 50 MG TABLET PO SCH (08:45)
[2018-04-01] MEDS: FAMOTIDINE 20MG TABLET PO SCH (09:00)
[2018-04-01] MEDS ORDERED: NON FORMULARY PATIENT HOME MED PO ONE (16:00)
[2018-04-01] MEDS: RIVAROXABAN 20 MG TABLET PO SCH (17:13)
[2018-04-01] MEDS: ATORVASTATIN CALCIUM 40MG TABLET PO SCH (20:36)
[2018-04-01] MEDS: TRAMADOL 50MG TABLET PO PRN (23:19)
[2018-04-02] VITALS (12 sets, daily range): BP systolic 93–136; BP diastolic 61–78
[2018-04-02] MEDS: BLOOD SUGAR DIAGNOSTIC STRIP TEST SCH ×4 (05:50→21:11)
[2018-04-02] MEDS: DILTIAZEM HCL 30MG TABLET PO SCH ×3 (06:00→17:34)
[2018-04-02] MEDS: SUCRALFATE 1G TABLET PO SCH ×4 (06:07→21:11)
[2018-04-02] MEDS: GLIPIZIDE 5MG TABLET PO SCH ×2 (06:07→17:32)
[2018-04-02 07:12] LABS: BASOPHILS % 0.7 % (0.0-2.0); EOSINOPHILS % 0.6 % (0.0-5.0); HEMATOCRIT. 30.9 % (36.0-48.0); HEMOGLOBIN. 10.1 g/dL (12.0-16.0); MEAN CORPUSCULAR HEMOGLOBIN 26.3 pg (28.0-32.0); MEAN CORPUSCULAR VOLUME 80.5 fL (81.0-99.0); MEAN PLATELET VOLUME 9.3 fl (7.4-10.4); MONOCYTES % 9.6 % (2.0-8.0); NEUTROPHILS % 66.1 % (40.0-76.0); PLATELET 231 x1000/uL (130-400); RED BLOOD CELL COUNT 3.84 mill/uL (4.2-5.4); RED CELL DISTRIBUTION WIDTH 18.2 % (11.6-14.6)
[2018-04-02] MEDS: FERROUS SULFATE 300MG/5ML UDC PO SCH ×4 (07:20→17:20)
[2018-04-02] MEDS: FUROSEMIDE 40MG TABLET PO SCH (09:00)
[2018-04-02] MEDS: NITROFURANTOIN 100MG M/M CAPSULE PO SCH (09:00)
[2018-04-02] MEDS: FAMOTIDINE 20MG TABLET PO SCH (09:00)
[2018-04-02] MEDS: DOCUSATE SODIUM 100MG CAPSULE PO SCH ×2 (09:00→17:32)
[2018-04-02] MEDS: POTASSIUM CHLORIDE 20MEQ TABLET SR PO SCH (09:00)
[2018-04-02] MEDS: LOSARTAN POTASSIUM 50 MG TABLET PO SCH (09:00)
[2018-04-02] MEDS: METOPROLOL TARTRATE 25MG TABLET PO SCH ×2 (09:00→21:11)
[2018-04-02] MEDS: INSULIN LISPRO 100 UNITS/ML SUBCUT SCH ×4 (09:06→21:11)
[2018-04-02] MEDS ORDERED: FOSFOMYCIN TROMETHAMINE 3 GM PO NR (13:00)
[2018-04-02] MEDS: RIVAROXABAN 20 MG TABLET PO SCH (17:32)
[2018-04-02] MEDS: ATORVASTATIN CALCIUM 40MG TABLET PO SCH (21:11)
[2018-04-03] VITALS (8 sets, daily range): BP systolic 90–125; BP diastolic 60–78
[2018-04-03] MEDS: DILTIAZEM HCL 30MG TABLET PO SCH ×3 (00:32→12:28)
[2018-04-03] MEDS: BLOOD SUGAR DIAGNOSTIC STRIP TEST SCH ×2 (06:05→12:10)
[2018-04-03] MEDS: GLIPIZIDE 5MG TABLET PO SCH (06:07)
[2018-04-03] MEDS: SUCRALFATE 1G TABLET PO SCH ×2 (06:07→11:50)
[2018-04-03] MEDS: FERROUS SULFATE 300MG/5ML UDC PO SCH ×2 (07:20→12:11)
[2018-04-03] MEDS: INSULIN LISPRO 100 UNITS/ML SUBCUT SCH ×2 (07:20→12:26)
[2018-04-03] MEDS: DOCUSATE SODIUM 100MG CAPSULE PO SCH (08:54)
[2018-04-03] MEDS: FUROSEMIDE 40MG TABLET PO SCH (08:54)
[2018-04-03] MEDS: POTASSIUM CHLORIDE 20MEQ TABLET SR PO SCH (08:54)
[2018-04-03] MEDS: FAMOTIDINE 20MG TABLET PO SCH (08:54)
[2018-04-03] MEDS: LOSARTAN POTASSIUM 50 MG TABLET PO SCH (09:00)
[2018-04-03] MEDS: METOPROLOL TARTRATE 25MG TABLET PO SCH (09:00)
== END 2018-04-03 14:49 | disposition home or self-care (01) | DRG 224 ==
LOC: CCL 05:52 → 3WST 05:53
PROVIDERS: ADMIT Internal Medicine Clinical Cardiac Electrophysiology; ATTEND Internal Medicine Clinical Cardiac Electrophysiology
PROC: 0JH609Z Insertion of Cardiac Resynchronization Defibrillator Pulse Generator into Chest Subcutaneous Tissue and Fascia, Open Approach (ICD-10-PCS; principal; 2018-03-29)
PROC: 02HK3KZ Insertion of Defibrillator Lead into Right Ventricle, Percutaneous Approach (ICD-10-PCS; 2018-03-29)
PROC: 02HL3KZ Insertion of Defibrillator Lead into Left Ventricle, Percutaneous Approach (ICD-10-PCS; 2018-03-29)
PROC: 04HY32Z Insertion of Monitoring Device into Lower Artery, Percutaneous Approach (ICD-10-PCS; 2018-03-29)
PROC: 4A023N6 Measurement of Cardiac Sampling and Pressure, Right Heart, Percutaneous Approach (ICD-10-PCS; 2018-03-29)
DX: I49.5 Sick sinus syndrome (principal); I50.23 Acute on chronic systolic (congestive) heart failure; N39.0 Urinary tract infection, site not specified; I48.91 Unspecified atrial fibrillation; I42.0 Dilated cardiomyopathy; T46.2X5A Adverse effect of other antidysrhythmic drugs, initial encounter; I11.0 Hypertensive heart disease with heart failure; B96.20 Unspecified Escherichia coli [E. coli] as the cause of diseases classified elsewhere; Z16.12 Extended spectrum beta lactamase (ESBL) resistance; E66.9 Obesity, unspecified; I50.9 Heart failure, unspecified; N28.9 Disorder of kidney and ureter, unspecified; Z79.899 Other long term (current) drug therapy; Z88.0 Allergy status to penicillin; Z90.710 Acquired absence of both cervix and uterus; Y92.89 Other specified places as the place of occurrence of the external cause; Z68.28 Body mass index [BMI] 28.0-28.9, adult
CPT/HCPCS: 33225; 33249; 36415; 71045; 75820; 80048; 82962; 93005; 93306; 93640; 93970; 97116; 97162; 97530; A4565; C1769; C1882; C1892; C1893; C1899; C1900; J1265; J1580; J1644; J1815; J1940; J2250; J2405; J2704; J2765; J3370; J3490; J7040; J7050; J7517; Q9967

== ENCOUNTER 2020-06-02 14:09 | Inpatient (IN) | payer BC, MEDICARE ==
[~2020-06-02] VITALS: Ht 162.6 cm; Wt 84.8 kg
[~2020-06-02 14:09] MED LIST changes: -ASC250 PO; +ASCO250T22 PO; -CARV3.1242 PO; -METF500T7 MT; -PANT40TA4 PO; +PANT40TA51 PO; -SACU1TAB MT; +VALS40TA11 PO; -ZOLP5TAB2 PO
[2020-06-02] MEDS ORDERED: LIDOCAINE HCL/PF 1% 2ML VIAL ONE (14:22)
[2020-06-02] MEDS ORDERED: SODIUM CHLORIDE 0.9% 1,000 ML IV ONE (14:30)
[2020-06-02 15:03] LABS: BG BASE EXCESS -1.8 mmol/L (-2.0-2.0); BG CARBOXYHEMOGLOBIN 0.8 % (0.5-1.5); BG HCO3 ACT 21.9 mmol/L (22.0-26.0); BG METHEMOGLOBIN 0.1 % (0.0-1.5); BG OXYHEMOGLOBIN 95.1 % (94.0-97.0); BG PCO2 33.8 mmHg (35.0-45.0); BG PH 7.429 (7.350-7.450); BG PO2 77.2 mmHg (75.0-100.0); BG SAMPLE SITE RIGHT RADIAL; BG TOTAL HEMOGLOBIN 13.1 g/dL (12.0-18.0); BG VENT MODE ROOM AIR
[2020-06-02 15:12] LABS: CHLORIDE 100 mEq/L (98-107)
[2020-06-02 15:14] LABS: BASOPHILS % 0.6 % (0.0-2.0); EOSINOPHILS % 1.1 % (0.0-5.0); HEMATOCRIT. 38.9 % (36.0-48.0); HEMOGLOBIN. 12.3 g/dL (12.0-16.0); INR 1.4; LYMPHOCYTES % 7.9 % (20.0-50.0); MEAN CORPUSCULAR HEMOGLOBIN 26.5 pg (28.0-32.0); MEAN CORPUSCULAR VOLUME 83.9 fL (81.0-99.0); MEAN PLATELET VOLUME 9.2 fl (7.4-10.4); MONOCYTES % 11.5 % (2.0-8.0); NEUTROPHILS % 78.9 % (40.0-76.0); PLATELET 147 x1000/uL (130-400); PROTHROMBIN TIME 15.1 sec (9.6-11.0); RED BLOOD CELL COUNT 4.63 mill/uL (4.2-5.4); RED CELL DISTRIBUTION WIDTH 17.3 % (11.6-14.6)
[2020-06-02] MEDS ORDERED: ACETAMINOPHEN 650MG/20.3ML UDC GT PRN (22:15)
[2020-06-02] MEDS ORDERED: ONDANSETRON HCL 4MG/2ML INJ IV PRN ×2 (22:15→22:30)
[2020-06-02] MEDS ORDERED: ENOXAPARIN 40MG/0.4ML SYR SUBCUT SCH ×2 (22:15→23:00)
[2020-06-02] MEDS ORDERED: MORPHINE SULFATE 2 MG/ML CPJ (NOT FOR IM USE) IV PRN ×2 (22:15→22:30)
[2020-06-02] MEDS ORDERED: IPRATROPIUM/ALBUTEROL 0.5-3(2.5)MG/3ML NEB NEB PRN ×2 (22:15→22:30)
[2020-06-02] MEDS ORDERED: CLONIDINE 0.1MG TABLET PO PRN (22:30)
[2020-06-02] MEDS ORDERED: ACETAMINOPHEN 650MG SUPP PR PRN (22:30)
[2020-06-02] MEDS ORDERED: MAGNESIUM/ALUMINUM HYDROXIDE/SIMETHICONE 30ML UDC PO PRN (22:30)
[2020-06-02] MEDS ORDERED: HYDROCODONE/ACETAMINOPHEN 5/325MG TABLET PO PRN (22:30)
[2020-06-02] MEDS: FUROSEMIDE 40MG/4ML VIAL IV SCH (22:59)
[2020-06-03] VITALS (7 sets, daily range): BP systolic 93–137; BP diastolic 53–92
[2020-06-03] MEDS ORDERED: LISINOPRIL 20MG TABLET PO SCH (09:00)
[2020-06-03] MEDS ORDERED: FUROSEMIDE 40MG/4ML VIAL IV SCH (09:00)
[2020-06-03] MEDS ORDERED: ASPIRIN 81MG EC TABLET PO SCH (09:00)
[2020-06-03] MEDS: ASPIRIN 81MG EC TABLET PO SCH (09:00)
[2020-06-03] MEDS: FUROSEMIDE 40MG/4ML VIAL IV SCH ×2 (09:16→16:22)
[2020-06-03] MEDS: LOSARTAN POTASSIUM 25 MG TABLET PO SCH (11:00)
[2020-06-03] MEDS: KETOROLAC 15MG/ML VIAL IV PRN (13:05)
[2020-06-03] MEDS: RIVAROXABAN 20 MG TABLET PO SCH (18:00)
[2020-06-03] MEDS: CARVEDILOL 3.125 MG TABLET PO SCH (21:00)
[2020-06-03] MEDS ORDERED: CARVEDILOL 6.25 MG TABLET PO SCH (21:00)
[2020-06-03] MEDS: ATORVASTATIN CALCIUM 40MG TABLET PO SCH (21:00)
[2020-06-04] VITALS (7 sets, daily range): BP systolic 105–117; BP diastolic 64–81
[2020-06-04 06:12] LABS: BASOPHILS % 1.4 % (0.0-2.0); EOSINOPHILS % 1.2 % (0.0-5.0); HEMATOCRIT. 38.1 % (36.0-48.0); HEMOGLOBIN. 12.3 g/dL (12.0-16.0); LYMPHOCYTES % 10.5 % (20.0-50.0); MEAN CORPUSCULAR VOLUME 83.7 fL (81.0-99.0); MEAN PLATELET VOLUME 9.7 fl (7.4-10.4); NEUTROPHILS % 74.9 % (40.0-76.0); PLATELET 139 x1000/uL (130-400); RED BLOOD CELL COUNT 4.55 mill/uL (4.2-5.4); RED CELL DISTRIBUTION WIDTH 17.2 % (11.6-14.6)
[2020-06-04] MEDS: FUROSEMIDE 40MG/4ML VIAL IV SCH ×2 (06:17→16:36)
[2020-06-04 06:43] LABS: CHLORIDE 100 mEq/L (98-107)
[2020-06-04] MEDS: ASPIRIN 81MG EC TABLET PO SCH (09:00)
[2020-06-04] MEDS: LOSARTAN POTASSIUM 25 MG TABLET PO SCH (09:00)
[2020-06-04] MEDS: CARVEDILOL 3.125 MG TABLET PO SCH ×2 (09:00→20:43)
[2020-06-04] MEDS ORDERED: POTASSIUM CHLORIDE 20MEQ/PACKET PO NR (11:15)
[2020-06-04] MEDS ORDERED: POTA20TA82 MT (12:15)
[2020-06-04] MEDS ORDERED: FURO-151 MT (12:15)
[2020-06-04] MEDS ORDERED: RIVA20TA MT (12:45)
[2020-06-04] MEDS ORDERED: COR3 PO (12:46)
[2020-06-04] MEDS: RIVAROXABAN 20 MG TABLET PO SCH (16:36)
[2020-06-04] MEDS: HYDROCODONE/ACETAMINOPHEN 5/325MG TABLET PO PRN (16:45)
[2020-06-04] MEDS: ATORVASTATIN CALCIUM 40MG TABLET PO SCH (20:44)
[2020-06-05 04:00] VITALS: BP 107/72
[2020-06-05] MEDS: OMEPRAZOLE 20MG CAPSULE EXTENDED RELEASE PO SCH (06:52)
[2020-06-05] MEDS: FUROSEMIDE 40MG/4ML VIAL IV SCH ×2 (07:15→17:33)
[2020-06-05 08:00] VITALS: BP 111/81
[2020-06-05] MEDS: LOSARTAN POTASSIUM 25 MG TABLET PO SCH (08:57)
[2020-06-05] MEDS: ASPIRIN 81MG EC TABLET PO SCH (09:00)
[2020-06-05] MEDS: CARVEDILOL 3.125 MG TABLET PO SCH ×2 (09:00→21:00)
[2020-06-05] MEDS ORDERED: GUAIFENESIN-DM 200MG-20MG/10ML UDC PO PRN (10:00)
[2020-06-05 10:30] LABS: BASOPHILS % 1.3 % (0.0-2.0); EOSINOPHILS % 0.6 % (0.0-5.0); HEMATOCRIT. 39.7 % (36.0-48.0); HEMOGLOBIN. 12.9 g/dL (12.0-16.0); LYMPHOCYTES % 10.1 % (20.0-50.0); MEAN CORPUSCULAR HEMOGLOBIN 26.6 pg (28.0-32.0); MONOCYTES % 8.4 % (2.0-8.0); NEUTROPHILS % 79.6 % (40.0-76.0); PLATELET 154 x1000/uL (130-400); RED BLOOD CELL COUNT 4.84 mill/uL (4.2-5.4); RED CELL DISTRIBUTION WIDTH 16.5 % (11.6-14.6)
[2020-06-05 10:37] LABS: CHLORIDE 97 mEq/L (98-107)
[2020-06-05 12:00] VITALS: BP 109/72
[2020-06-05] MEDS ORDERED: DEXTROSE 50% WATER 50ML SYRINGE IV PRN (12:45)
[2020-06-05 16:00] VITALS: BP 97/94
[2020-06-05] MEDS: BLOOD SUGAR DIAGNOSTIC STRIP TEST SCH ×2 (17:20→21:29)
[2020-06-05] MEDS: RIVAROXABAN 20 MG TABLET PO SCH (17:31)
[2020-06-05] MEDS: INSULIN LISPRO 100 UNITS/ML SUBCUT SCH ×2 (18:29→21:29)
[2020-06-05 20:00] VITALS: BP 110/75
[2020-06-05] MEDS: ATORVASTATIN CALCIUM 40MG TABLET PO SCH (21:00)
[2020-06-06] VITALS: BP 93/67
[2020-06-06] MEDS: KETOROLAC 15MG/ML VIAL IV PRN ×2 (02:00→08:18)
[2020-06-06 04:00] VITALS: BP_SYST 102; BP_SYST 107; BP_DIAS 47; BP_DIAS 72
[2020-06-06] MEDS: FUROSEMIDE 40MG/4ML VIAL IV SCH ×2 (06:32→18:00)
[2020-06-06] MEDS: OMEPRAZOLE 20MG CAPSULE EXTENDED RELEASE PO SCH (06:32)
[2020-06-06] MEDS: BLOOD SUGAR DIAGNOSTIC STRIP TEST SCH ×4 (06:32→21:37)
[2020-06-06 06:59] LABS: BASOPHILS % 0.9 % (0.0-2.0); EOSINOPHILS % 0.8 % (0.0-5.0); HEMATOCRIT. 38.6 % (36.0-48.0); HEMOGLOBIN. 12.5 g/dL (12.0-16.0); LYMPHOCYTES % 13.7 % (20.0-50.0); MEAN CORPUSCULAR HEMOGLOBIN 26.6 pg (28.0-32.0); MEAN CORPUSCULAR VOLUME 82.1 fL (81.0-99.0); MEAN PLATELET VOLUME 9.5 fl (7.4-10.4); MONOCYTES % 10.1 % (2.0-8.0); NEUTROPHILS % 74.5 % (40.0-76.0); PLATELET 145 x1000/uL (130-400); RED CELL DISTRIBUTION WIDTH 16.8 % (11.6-14.6)
[2020-06-06 07:06] LABS: CHLORIDE 97 mEq/L (98-107)
[2020-06-06] MEDS: INSULIN LISPRO 100 UNITS/ML SUBCUT SCH ×4 (07:50→21:51)
[2020-06-06 08:00] VITALS: BP 96/68
[2020-06-06] MEDS: HYDROCODONE/ACETAMINOPHEN 5/325MG TABLET PO PRN (08:18)
[2020-06-06] MEDS: ASPIRIN 81MG EC TABLET PO SCH (08:18)
[2020-06-06] MEDS: DOCUSATE SODIUM 100MG CAPSULE PO PRN (08:18)
[2020-06-06] MEDS: LOSARTAN POTASSIUM 25 MG TABLET PO SCH (08:20)
[2020-06-06] MEDS: CARVEDILOL 3.125 MG TABLET PO SCH ×2 (08:27→21:00)
[2020-06-06 12:00] VITALS: BP 109/71
[2020-06-06] MEDS ORDERED: POTASSIUM CHLORIDE 20MEQ TABLET SR PO NR (12:30)
[2020-06-06 16:00] VITALS: BP 93/65
[2020-06-06] MEDS: RIVAROXABAN 20 MG TABLET PO SCH (18:00)
[2020-06-06 20:00] VITALS: BP 96/66
[2020-06-06 20:13] LABS: CREATINE KINASE 38 IU/L (26-192)
[2020-06-06] MEDS: ATORVASTATIN CALCIUM 40MG TABLET PO SCH ×2 (21:00→21:37)
[2020-06-07] VITALS: BP 101/60
[2020-06-07] MEDS: KETOROLAC 15MG/ML VIAL IV PRN (03:40)
[2020-06-07 04:00] VITALS: BP 102/66
[2020-06-07] MEDS: FUROSEMIDE 40MG/4ML VIAL IV SCH ×2 (06:19→19:04)
[2020-06-07 07:30] LABS: CHLORIDE 95 mEq/L (98-107)
[2020-06-07] MEDS: BLOOD SUGAR DIAGNOSTIC STRIP TEST SCH ×4 (07:43→21:31)
[2020-06-07] MEDS: INSULIN LISPRO 100 UNITS/ML SUBCUT SCH ×4 (07:50→21:31)
[2020-06-07 07:54] LABS: BASOPHILS % 1.5 % (0.0-2.0); HEMATOCRIT. 39.5 % (36.0-48.0); HEMOGLOBIN. 12.9 g/dL (12.0-16.0); LYMPHOCYTES % 17.9 % (20.0-50.0); MEAN CORPUSCULAR VOLUME 82.7 fL (81.0-99.0); MEAN PLATELET VOLUME 9.7 fl (7.4-10.4); MONOCYTES % 9.2 % (2.0-8.0); NEUTROPHILS % 70.4 % (40.0-76.0); PLATELET 140 x1000/uL (130-400); RED BLOOD CELL COUNT 4.78 mill/uL (4.2-5.4); RED CELL DISTRIBUTION WIDTH 17.3 % (11.6-14.6)
[2020-06-07 08:00] VITALS: BP 98/47
[2020-06-07] MEDS: ASPIRIN 81MG EC TABLET PO SCH (09:00)
[2020-06-07] MEDS: FAMOTIDINE 20MG TABLET PO SCH (09:00)
[2020-06-07] MEDS: LOSARTAN POTASSIUM 25 MG TABLET PO SCH (09:00)
[2020-06-07] MEDS: CARVEDILOL 3.125 MG TABLET PO SCH ×2 (09:00→21:00)
[2020-06-07 12:00] VITALS: BP 94/62
[2020-06-07] MEDS: DOCUSATE SODIUM 100MG CAPSULE PO PRN (12:19)
[2020-06-07] MEDS ORDERED: SORBITOL 70% SOLN 30ML PO NR (13:45)
[2020-06-07 18:00] VITALS: BP 104/72
[2020-06-07] MEDS: RIVAROXABAN 20 MG TABLET PO SCH (19:04)
[2020-06-07 20:00] VITALS: BP 118/82
[2020-06-07] MEDS: ATORVASTATIN CALCIUM 40MG TABLET PO SCH (21:00)
[2020-06-08] VITALS: BP 98/58
[2020-06-08 04:00] VITALS: BP 115/73
[2020-06-08] MEDS: FUROSEMIDE 40MG/4ML VIAL IV SCH (06:39)
[2020-06-08] MEDS: BLOOD SUGAR DIAGNOSTIC STRIP TEST SCH (06:40)
[2020-06-08 06:43] LABS: CHLORIDE 96 mEq/L (98-107)
[2020-06-08 07:03] LABS: EOSINOPHILS % 0.6 % (0.0-5.0); HEMATOCRIT. 38.6 % (36.0-48.0); HEMOGLOBIN. 12.5 g/dL (12.0-16.0); LYMPHOCYTES % 16.5 % (20.0-50.0); MEAN CORPUSCULAR HEMOGLOBIN 26.8 pg (28.0-32.0); MEAN CORPUSCULAR VOLUME 82.5 fL (81.0-99.0); MEAN PLATELET VOLUME 9.6 fl (7.4-10.4); NEUTROPHILS % 71.9 % (40.0-76.0); PLATELET 134 x1000/uL (130-400); RED BLOOD CELL COUNT 4.68 mill/uL (4.2-5.4)
[2020-06-08] MEDS: INSULIN LISPRO 100 UNITS/ML SUBCUT SCH (07:37)
[2020-06-08 08:00] VITALS: BP 102/73
[2020-06-08 08:38] VITALS: BP 102/73
[2020-06-08] MEDS: ASPIRIN 81MG EC TABLET PO SCH (09:00)
[2020-06-08] MEDS: LOSARTAN POTASSIUM 25 MG TABLET PO SCH (09:00)
[2020-06-08] MEDS: FAMOTIDINE 20MG TABLET PO SCH (09:00)
[2020-06-08] MEDS: CARVEDILOL 3.125 MG TABLET PO SCH (09:00)
[2020-06-08] MEDS ORDERED: FUROSEMIDE 40MG TABLET PO SCH (16:00)
== END 2020-06-08 11:05 | DRG 291 ==
LOC: ER 14:09 → 5WST 18:27 → ENRESERV 22:50 → EDBEDREQ 22:55 → 6EST 06-05 09:43
PROVIDERS: ADMIT Internal Medicine Nephrology; ATTEND Internal Medicine Nephrology
PROC: 4B02XTZ Measurement of Cardiac Defibrillator, External Approach (ICD-10-PCS; principal; 2020-06-03)
DX: I11.0 Hypertensive heart disease with heart failure (principal); E43 Unspecified severe protein-calorie malnutrition; R45.851 Suicidal ideations; E87.1 Hypo-osmolality and hyponatremia; I48.19 Other persistent atrial fibrillation; M48.02 Spinal stenosis, cervical region; I50.23 Acute on chronic systolic (congestive) heart failure; E11.65 Type 2 diabetes mellitus with hyperglycemia; E66.9 Obesity, unspecified; Z20.822 Contact with and (suspected) exposure to COVID-19; I95.9 Hypotension, unspecified; E78.00 Pure hypercholesterolemia, unspecified; I08.1 Rheumatic disorders of both mitral and tricuspid valves; K59.00 Constipation, unspecified; E87.6 Hypokalemia; M48.061 Spinal stenosis, lumbar region without neurogenic claudication; R26.2 Difficulty in walking, not elsewhere classified; M51.34 Other intervertebral disc degeneration, thoracic region; M51.36 Other intervertebral disc degeneration, lumbar region; I42.0 Dilated cardiomyopathy; E78.5 Hyperlipidemia, unspecified; I27.20 Pulmonary hypertension, unspecified; R26.9 Unspecified abnormalities of gait and mobility; Z79.01 Long term (current) use of anticoagulants; Z88.0 Allergy status to penicillin; Z68.32 Body mass index [BMI] 32.0-32.9, adult; Z79.899 Other long term (current) drug therapy; Z71.3 Dietary counseling and surveillance; Z95.810 Presence of automatic (implantable) cardiac defibrillator; Z86.19 Personal history of other infectious and parasitic diseases; R53.1 Weakness
CPT/HCPCS: 36415; 36600; 71045; 72128; 72131; 80048; 80053; 82375; 82550; 82805; 82962; 83605; 83880; 84484; 85025; 87426; 93005; 93306; 97116; 97162; 99285; J1650; J1815; J1885; J1940; J3490; J7030